=== PATIENT | female | born 1995 | race Caucasian/White ===

== ENCOUNTER → 2022-06-17 | Outpatient (CLI) | payer OTHER, SELFPAY ==
[2022-06-17 10:09] LABS: hCG Titer Quant., Serum 204 mIU/mL (1-3)
== END | disposition home or self-care (01) ==
LOC: PAVLAB 09:02
PROVIDERS: Referring Provider Obstetrics & Gynecology; Visit Provider Obstetrics & Gynecology
DX: N91.2 Amenorrhea, unspecified (principal)
CPT/HCPCS: 36415; 84702

== ENCOUNTER → 2022-07-08 | Outpatient (CLI) | payer OTHER, SELFPAY ==
--- NOTE | 2022-07-08 15:58 | US_ITS ---
EXAM: US , TRANSVAGINAL CLINICAL INDICATION: dating TECHNIQUE: Real-time transvaginal obstetrical ultrasound of the maternal pelvis and a first trimester with image documentation. Transvaginal imaging was used for better evaluation of the fetus and adnexa. This report was created using [employer] report generation technology. COMPARISON: None. FINDINGS: GESTATION: There is an intrauterine gestational sac that measures 3.3 x 1.3 x 3.6 cm age 7 weeks 5 days. There is a 3 mm yolk sac. There is a pole with a crown-rump length of 1 cm age 7 weeks 1 day. heart rate is 150 bpm. PLACENTA/AMNIOTIC FLUID: Cannot be adequately evaluated due to the early gestational age. UTERUS/CERVIX: Uterus measures 9.0 x 4.5 x 6.6 cm. No myometrial mass. OVARIES: The left ovary measures 5.0 x 3.3 x 3.1 cm. There is a 2.0 x 1.9 cm corpus luteum present. The right ovary measures 3.6 x 2.1 x 2.6 cm. No mass. FREE FLUID: No free fluid. US/Transvaginal w/Preg US IMPRESSION: Intrauterine gestation with an average ultrasound age of 7 weeks 3 days and ultrasound estimated due date of 02/21/2023. heart rate is 150 bpm. Electronically Signed: Jose Angel Lopez MD at 21:31 EDT ,
== END | disposition home or self-care (01) ==
LOC: US 15:57
PROVIDERS: Referring Provider Obstetrics & Gynecology; Visit Provider Obstetrics & Gynecology
DX: N91.2 Amenorrhea, unspecified (principal)
CPT/HCPCS: 76817

== ENCOUNTER → 2022-08-05 | Outpatient (CLI) | payer OTHER, SELFPAY ==
[2022-08-05 16:43] LABS: Absolute Lymphocyte Count 2.37 X10^3/uL (0.83-4.51); Absolute Neutrophil Count 4.8 X10^3/uL (2.0-7.7); Basophil# 0.06 X10^3/uL; Basophil% 0.7 % (0-1); Eosinophil# 0.18 X10^3/uL; Eosinophils% 2.2 % (0-5); Hematocrit 37.3 % (37-47); Hemoglobin 12.6 g/dL (12.0-15.0); Lymphocyte # 2.37 X10^3/ul (0.83-4.51); Lymphocyte % 28.7 % (19-41); Mean Corp Hgb Conc 33.8 g/dL (32-36); Mean Corpuscular Hgb 32.5 pg (27.0-32.0); Mean Corpuscular Volume 96.1 fL (81-99); Mean Platelet Vol. 9.9 fl (6.2-12.0); Monocyte# 0.81 X10^3/uL; Monocyte% 9.8 % (0-10); NRBC Flagged by Analyzer 0 % (0-5); Neutrophil # 4.82 X10^3/uL (2.7-7.7); Neutrophil % 58.4 % (47-70); Platelet Count 283 K/mm3 (150-450); RBC Distribution Width CV 13.1 % (11.6-14.6); RBC Distribution Width SD 46.4 fl (35.1-43.9); Red Blood Count 3.88 M/mm3 (4.2-5.4); White Blood Count 8.3 K/mm3 (4.4-11.0)
[2022-08-05 17:12] LABS: NATERA MAILED SPECIMEN
[2022-08-05 18:00] LABS: HIV - WCH Non-Reactive (Nonreactive); Hepatitis B Surface Antigen Non-Reactive (Nonreactive); Hepatitis C Antibody Non-Reactive (Nonreactive); Rubella IgG Reactive (Nonreactive); Syphilis Antibodies Non-reactive
[2022-08-09 22:06] LABS: Chlamydia By Nucleic Acid AMP Negative (Negative)
[2022-08-10 07:50] LABS: Gonococcus By Nucleic Acid AMP Negative (Negative)
== END | disposition home or self-care (01) ==
PROVIDERS: Referring Provider Obstetrics & Gynecology; Visit Provider Obstetrics & Gynecology
DX: Z34.81 Encounter for supervision of other normal pregnancy, first trimester (principal)
CPT/HCPCS: 36415; 85025; 86703; 86762; 86780; 86803; 86850; 86900; 86901; 87086; 87340; 87491; 87591

== ENCOUNTER → 2022-10-15 | Outpatient (CLI) | payer OTHER, SELFPAY ==
--- NOTE | 2022-10-15 12:20 | US_ITS ---
INDICATION: Anatomy scan EXAMINATION: Ultrasound US OB Greater Than 14 Weeks TECHNIQUE: Transabdominal pelvic ultrasound was performed. COMPARISON: None. LMP: Unknown. Beta-hCG: Unknown. Provided EGA: None. FINDINGS: INTRAUTERINE GESTATION(s): Single. HEART MOTION is 136 bpm. BIOMETRIC MEASUREMENTS: HEAD CIRCUMFERENCE: 18.80 cm which corresponds to 21 weeks 1 day. BIPARIETAL DIAMETER: 5.037 cm which corresponds to 21 weeks 2 days. ABDOMINAL CIRCUMFERENCE: 16.47 cm cm which corresponds to 21 weeks 4 days. FEMORAL LENGTH: 3.56 cm cm which corresponds to 21 weeks 2 days. ESTIMATED DUE DATE (MARCO ANTONIO): February 24, 2023 ESTIMATED WEIGHT: 4 22 g PRESENTATION: Cephalic Largest fluid pocket 4.8 x 4.1 cm. BIOPHYSICAL PROFILE (BPP): Not assessed. PLACENTA: Posterior There is no placenta previa or abruption. CERVIX: The cervix is closed. MATERNAL OVARIES: Not seen. FREE FLUID: None. ANATOMY: LATERAL VENTRICLES: Visualized CHOROID PLEXUS: Visualized. MIDLINE FALX: Visualized. CAVUM SEPTUM PELLUCIDI: Visualized. CEREBELLUM: Unremarkable CISTERNA MAGNA: Visualized. 0.6 cm. UPPER LIP: Intact. FOUR CHAMBER HEART VIEW: Unremarkable. LEFT VENTRICULAR OUTFLOW TRACT: Visualized. RIGHT VENTRICULAR OUTFLOW TRACT: Visualized. STOMACH: Visualized. KIDNEYS: Visualized, no hydronephrosis. URINARY BLADDER: Visualized. UMBILICAL CORD INSERTION into the abdomen: Unremarkable. UMBILICAL CORD vessel number: Normal three vessel cord. SPINE: Unremarkable. No posterior spinal defect observed. UPPER AND LOWER EXTREMITIES: Present. GENDER: Not assessed. US/OB Anatomy w/ Transvaginal IMPRESSION: Single live intrauterine with an estimated gestational age of 21 weeks 1 day. Electronically Signed: Catarino North MD, ARTEM at 11:17 EDT ,
== END | disposition home or self-care (01) ==
LOC: OPUS 12:18
PROVIDERS: Referring Provider Obstetrics & Gynecology; Visit Provider Obstetrics & Gynecology
DX: O09.90 Supervision of high risk pregnancy, unspecified, unspecified trimester (principal); Z3A.00 Weeks of gestation of pregnancy not specified
CPT/HCPCS: 76805; 76817

== ENCOUNTER → 2022-12-24 | Outpatient (CLI) | payer OTHER, SELFPAY ==
[2022-12-24 13:32] LABS: Absolute Lymphocyte Count 1.66 X10^3/uL (0.83-4.51); Absolute Neutrophil Count 6.1 X10^3/uL (2.0-7.7); Basophil# 0.04 X10^3/uL; Basophil% 0.5 % (0-1); Eosinophil# 0.15 X10^3/uL; Eosinophils% 1.7 % (0-5); Hematocrit 35.7 % (37-47); Hemoglobin 11.8 g/dL (12.0-15.0); Lymphocyte # 1.66 X10^3/ul (0.83-4.51); Lymphocyte % 18.7 % (19-41); Mean Corp Hgb Conc 33.1 g/dL (32-36); Mean Corpuscular Hgb 32.2 pg (27.0-32.0); Mean Corpuscular Volume 97.5 fL (81-99); Mean Platelet Vol. 11.4 fl (6.2-12.0); Monocyte# 0.84 X10^3/uL; Monocyte% 9.5 % (0-10); NRBC Flagged by Analyzer 0 % (0-5); Neutrophil # 6.14 X10^3/uL (2.7-7.7); Neutrophil % 69.3 % (47-70); Platelet Count 260 K/mm3 (150-450); RBC Distribution Width CV 12.4 % (11.6-14.6); RBC Distribution Width SD 44.6 fl (35.1-43.9); Red Blood Count 3.66 M/mm3 (4.2-5.4); White Blood Count 8.9 K/mm3 (4.4-11.0)
[2022-12-24 14:01] LABS: Glucose Challenge Gest 1H 50g 77 mg/dL (70-140)
[2022-12-28 16:03] LABS: HIV - WCH Non-Reactive (Nonreactive); Syphilis Antibodies Non-reactive
== END | disposition home or self-care (01) ==
PROVIDERS: Referring Provider Advanced Practice Midwife; Visit Provider Advanced Practice Midwife
DX: O09.90 Supervision of high risk pregnancy, unspecified, unspecified trimester (principal); Z13.1 Encounter for screening for diabetes mellitus; Z3A.00 Weeks of gestation of pregnancy not specified
CPT/HCPCS: 36415; 82950; 85025; 86703; 86780

== ENCOUNTER 2023-01-07 14:10 | Outpatient (CLI) | payer OTHER, SELFPAY ==
[2023-01-07] VITALS (8 sets, daily range): BP systolic 121–132; BP diastolic 70–82; PULSE 68–84; TEMP 36.7; BMI 29.9
--- NOTE | 2023-01-07 14:22 | US_ITS ---
STUDY: SECOND AND THIRD TRIMESTER OBSTETRICAL ULTRASOUND - LIMITED REASON FOR EXAM: Female, 27 years old growth LMP: PRIOR ULTRASOUND: None. TECHNIQUE: Transabdominal TECHNICAL QUALITY: Adequate. FINDINGS: There is a single intrauterine fetus. The fetus is in a cephalic presentation. There is demonstrated cardiac activity with a heart rate of 140 bpm. There is a normal amniotic fluid volume. The largest amniotic fluid pocket measures 4.6 x 3.3 cm. The amniotic fluid index (NAHEED) is 13.27 cm. The placenta is posterior and not low-lying There are Grade 1 placental changes. Cervix was not visualized.. BIOMETRY: BPD: 8.5 cm: 34 weeks, 2 days HC: 31.02 cm: 34 weeks, 5 days AC: 27.52 cm: 31 weeks, 4 days FL: 6.49 cm: 33 weeks, 3 days Age by LMP: 33 weeks, 4 days. MARCO ANTONIO by LMP: February 21, 2023. age by prior US: weeks, days. MARCO ANTONIO by prior US: . age by current US: 33 weeks, 5 days. MARCO ANTONIO by current US: February 20, 2023. Estimated weight: 2028 grams, +/- 304 grams, 20 percentile. US/OB Limited With Biometrics IMPRESSION: Viable intrauterine gestation approximately 33-34 weeks gestational age. No significant abnormality Electronically Signed: Prasad Flores MD at 16:33 EDT ,
[2023-01-07] MEDS: Betamethasone/Betamethasone 30 MG/5 ML Vial 12 MG IM (14:59)
[2023-01-07 15:07] LABS: Hematocrit 34.6 % (37-47); Hemoglobin 11.6 g/dL (12.0-15.0); Mean Corp Hgb Conc 33.5 g/dL (32-36); Mean Corpuscular Hgb 32.2 pg (27.0-32.0); Mean Corpuscular Volume 96.1 fL (81-99); Platelet Count 238 K/mm3 (150-450); RBC Distribution Width CV 12.1 % (11.6-14.6); White Blood Count 11.2 K/mm3 (4.4-11.0)
[2023-01-07 15:28] LABS: AST(SGOT) 10 U/L (15-37); Alanine Aminotransfer ALT/SGPT 14 U/L (13-56); Creatinine, Serum 0.72 mg/dL (0.55-1.02); EST Glomerular Filtration Rate 104 mL/min (>60); Est Glom Filt Rate - Afr Amer 126 mL/min (>60); Estimated Creatinine Clearance 102.25 ml/min; Uric Acid 3.5 mg/dL (2.6-6.0)
[2023-01-07 15:45] LABS: Protein, Urine (Random) < 6.0 mg/dL (<11.9)
--- NOTE | 2023-01-08 00:54 | OB.TRI.PN_ITS ---
Progress Notes Date of Service: 01/07/23 Progress Note: Patient presents for triage evaluation secondary to elevate dblood pressures FHT: 140 Moderate variability reactive no decelerations category I tracing [place]: no regular Contractions Assessment and plan: elevate dbp in office repeats WNL nl labs steroids given Reactive NST, reassuring maternal and status patient discharged to home to follow-up for repeat bmx tomorrow. See problem list details for additional plan information. Laboratory Studies: Laboratory Tests 01/07/23 Range/Units 14:45 WBC 11.2 H (4.4-11.0) K/mm3 RBC 3.60 L (4.2-5.4) M/mm3 Hgb 11.6 L (12.0-15.0) g/dL Hct 34.6 L (37-47) % MCV 96.1 (81-99) fL MCH 32.2 H (27.0-32.0) pg MCHC 33.5 (32-36) g/dL RDW Std Deviation 43.0 (35.1-43.9) fl RDW Coeff of Livia 12.1 (11.6-14.6) % Plt Count 238 (150-450) K/mm3 MPV 12.0 (6.2-12.0) fl Creatinine 0.72 (0.55-1.02) mg/dL Estim Creat Clear Calc 102.25 ml/min Est GFR (MDRD) Af Amer 126 (>60) mL/min Est GFR (MDRD) Non-Af 104 (>60) mL/min Uric Acid 3.5 (2.6-6.0) mg/dL AST 10 L (15-37) U/L ALT 14 (13-56) U/L U Random Total Protein < 6.0 (<11.9) mg/dL Urine Creatinine 14.80 (NO RANGE EST.) mg/dL Protein/Creatinin Ratio TNP Charges/Coding Procedures Urinary/Genital [id number]: [id number] non-stress test Interp Assessment & Plan (1) Elevated blood pressure reading in office with diagnosis of hypertension: COMMENT: repeat bps WNL, given steroids on l and d 01/07 and 01/08 (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 (3) Supervision of high risk , antepartum: COMMENT: PRR MARCO ANTONIO 02/21/23 boy Turner (4) : QUALIFIERS: Weeks of gestation: 33 weeks Qualified Code(s): Z3A.33 - 33 weeks gestation of COMMENT: NIPT low risk, had early ultrasound, nl anatomy
== END 2023-01-07 17:35 | disposition home or self-care (01) ==
LOC: WPOUT 14:14 → WP 14:15
PROVIDERS: Referring Provider Obstetrics & Gynecology; Visit Provider Obstetrics & Gynecology
DX: O16.3 Unspecified maternal hypertension, third trimester (principal); Z3A.33 33 weeks gestation of pregnancy
CPT/HCPCS: 36415; 59025; 59050; 76816; 82565; 82570; 84156; 84450; 84460; 84550; 85027; 96372; 99221; G0378; J0702

== ENCOUNTER → 2023-01-07 | Outpatient (CLI) | payer OTHER, SELFPAY ==
[2023-01-07 15:19] LABS: Protein, Urine (Random) < 6.0 mg/dL (<11.9)
== END | disposition home or self-care (01) ==
LOC: LABSPEC 14:15
PROVIDERS: Referring Provider Registered Nurse; Visit Provider Registered Nurse
DX: O16.9 Unspecified maternal hypertension, unspecified trimester (principal); Z3A.00 Weeks of gestation of pregnancy not specified
CPT/HCPCS: 82570; 84156

== ENCOUNTER 2023-01-08 14:55 | Outpatient (CLI) | payer OTHER, SELFPAY ==
[2023-01-08] MEDS: Betamethasone/Betamethasone 30 MG/5 ML Vial 12 MG IM (15:30)
--- NOTE | 2023-01-09 10:19 | OB.TRI.PN ---
Progress Notes Date of Service: 01/08/23 Progress Note: [facility] prematurity
== END 2023-01-08 15:35 | disposition home or self-care (01) ==
LOC: WPOUT 15:05 → WP 15:06
PROVIDERS: Referring Provider Obstetrics & Gynecology; Visit Provider Obstetrics & Gynecology
DX: O26.893 Other specified pregnancy related conditions, third trimester (principal); R03.0 Elevated blood-pressure reading, without diagnosis of hypertension; Z3A.33 33 weeks gestation of pregnancy
CPT/HCPCS: 96372; 99221; G0378; J0702

== ENCOUNTER 2023-01-12 23:00 | Inpatient (IN) | payer OTHER, SELFPAY ==
[2023-01-12] VITALS (24 sets, daily range): BP systolic 136–184; BP diastolic 66–97; PULSE 53–96; RESP 16; TEMP 36.6–37.1; O2SAT 97–100; BMI 30.2
--- OUTSIDE RECORDS SUMMARY | 2023-01-12 20:35 | XMS RPT_ITS | CCD ---
Author Name Unknown Address [address] [place] [address] Organization [facility] Care Team Providers Care Electrical Cad Technician Name Role Phone Sprang, Vicki Unavailable No, Physician Unavailable Unavailable NATALIE, STARR Unavailable Unavailable NATALIE, STARR Unavailable Unavailable NATALIE, STARR Unavailable Unavailable NATALIE, STARR Unavailable Unavailable Gael, Radha A Unavailable Unavailable Gael, Radha A Unavailable Unavailable No Doctor Assigned, Nodr Unavailable Unavail able No Doctor Assigned, Nodr Unavailable Unavail able Sokari, Telemate Unavailable Unavailable Sokari, Telemate Unavailable Unavailable No Doctor Assigned, Nodr Unavailable Unavail able Conrad, Aime W Unavailable Unavailable Conrad, Aime W Unavailable Unavailable No Doctor Assigned, Nodr Unavailable Unavail able Rings, Parth Unavailable Unavailable Rings, Parth Unavailable Unavailable NATALIE, STARR Unavailable Unavailable GARDILCIC, STJEPAN Unavailable Unavailable NATALIE, STARR Unavailable Unavailable GARDILCIC, STJEPAN Unavailable Unavailable Acosta, Jose Raul Unavailable Unavailable PROVIDER, UNKNOWN Unavailable Unavailable No, PCP Unavailable Unavailable DON YARA R Unavailable Unavailable SPRANG, VICKI A Unavailable Unavailable SPRANG, VICKI A Unavailable Unavailable DON YARA R Unavailable Unavailable DON, YARA R Unavailable Unavailable SPRANG, VICKI A Unavailable Unavailable DON, YARA R Unavailable Unavailable SPRANG, VICKI A Unavailable Unavailable SPRANG, VICKI A Unavailable Unavailable KATHI JIMENEZ ANANT Unavailable Unavailable ANKUSHDONI PELAYO ANANT Unavailable Unavail able SPRANG, VICKI Unavailable Unavailable SPRANG, VICKI Unavailable Unavailable ENT CONSULTANT, DONNAMARIE Unavailable Unavailable SPRANG, VICKI Unavailable Unavailable SPRANG, VICKI Unavailable Unavailable ENT CONSULTANT, DONNAMARIE Unavailable Unavailable SPRANG, VICKI Unavailable Unavailable Operations Project Manager, Donnamarie Unavailable Unavailable Operations Project Manager, Donnamarie Unavailable Unavailable Operations Project Manager, Donnamarie Unavailable Unavailable Operations Project Manager, Donnamarie Unavailable Unavailable Sprang, Vicki A Unavailable Unavailable Sprang, Vicki A Unavailable Unavailable NO, PHYSICIAN Primary Care Unavailable No, Physician Primary Care Provider Unavailabl e NO, PHYSICIAN Primary Care Unavailable SUNG SALES Attending Unavailable SUNG SALES Admitting Unavailable Required, No Pcp Unavailable Unavailable Edilberto Tellez Unavailable Unavailable Catarino Cervantes Unavailable Unavailable Jose Maria, Dr. Prashanth Centeno Attending Unavaila ble Billy, Dr. Catarino Mendoza Attending Unavaila ble Belen, Mr. Ian Schulz Attending Unavailable Aime King Unavailable Allergies Allergy Classification Reported Allergen(s) Allergy Type Date of Onset Reaction(s) Facility (1 source) No Known Medication Allergies; Translations: [No Known Medication Allergies] Propensity to adverse reactions to drug (disorder) [facility] Repository Medications Current Medications Medication Drug Class(es) Dates Sig (Normalized) Sig (Original) amitriptyline hydrochloride 25 mg oral tablet (1 source) Tricyclic Antidepressant Start: 07-06-2017 End: 07-06-2018 take 1 tablet by mouth once amitriptyline (ELAVIL) 25 MG tablet Take 1 (one) tablet (25 mg total) by mouth nightly. 30 tablet 0 07/06/2017 07/06/2018 Active cephalexin 500 mg oral capsule (1 source) Cephalosporin Antibacterial Start: 12-31-2022 End: 01-06-2023 take 1 capsule by mouth twice daily cephalexin 500 mg oral capsule ; 1 cap(s) orally 2 times a day Quantity: 14 Refills: 0 Ordered: 30-Dec-2022 Aime King Start: 30-Dec-2022 End: 05-Jan-2023 Generic Substitution Allowed Comments: Finish all this medication unless otherwise directed by prescriber. Completed/Discontinued Medications Medication Drug Class(es) Dates Sig (Normalized) Sig (Original) amoxicillin 500 mg oral capsule (3 sources) Penicillin-class Antibacterial Start: 06-16-2022 End: 07-16-2022 AMOXICILLIN 500 MG CAPSULE ; 1 cap(s) orally once a day with food Quantity: 0 Refills: 1 Ordered: 05-Jul-2022 Kimberlee Sanchez Start: 16-Jun-2022 End: 16-Jul-2022 Generic Substitution Allowed Comments: Source=Surescripts , Medication=AMOXICI LLIN 500 MG CAPSULE, OriginatingSource= [employer], OriginatingProvide r=CHANTAL RAMIREZ, Duration=30, Refills=1, Date Last Modified/Filled= Problems Active Problems Problem Classification Problem Date Documented Da te Episodic/Chronic Abdominal pain (1 source) Pelvic and perineal pain; Translations: [Pelvic and perineal pain] Onset: 08-03-2017 Fever of unknown origin (1 source) Fever, unspecified; Translations: [Fever, unspecified] Onset: 07-05-2022 Episodic Fluid and electrolyte disorders (1 source) Dehydration; Translations: [Dehydration] Onset: 07-05-2022 Episodic Genitourinary symptoms and ill-defined conditions (2 sources) Retention of urine; Translations: [Dysuria] Onset: 06-27-2017 Episodic Hypertension complicating ; childbirth and the puerperium (1 source) Hypertensive disorder; Translations: [Unspecified hypertension complicating , childbirth, or the puerperium, unspecified as to episode of care or not applicable] 12-31-2022 Chronic Intestinal infection (1 source) Viral intestinal infection, unspecified; Translations: [Viral intestinal infection, unspecified] Onset: 07-05-2022 Episodic Mood disorders (1 source) Mild major depression, single episode; Translations: [Current mild episode of major depressive disorder without prior episode] Onset: 12-01-2018 12-01-2018 Chronic Other complications of (1 source) Other viral diseases complicating , first trimester; Translations: [Other viral diseases complicating , first trimester] Onset: 07-05-2022 Episodic Other complications of (1 source) Endocrine, nutritional and metabolic diseases complicating , first trimester; Translations: [Endo, nutritional and metab diseases comp preg, first tri] Onset: 07-05-2022 Episodic Other complications of (1 source) Vomiting of , unspecified; Translations: [Vomiting of , unspecified] Onset: 07-05-2022 Episodic Other complications of (1 source) Other specified related conditions, first trimester; Translations: [Oth related conditions, first trimester] Onset: 07-05-2022 Episodic Other diseases of bladder and urethra (1 source) Other specified disorders of bladder; Translations: [Other specified disorders of bladder] Onset: 06-06-2022 Chronic Other diseases of bladder and urethra (1 source) Spasm of bladder; Translations: [Spasmodic bladder] Episodic Other skin disorders (2 sources) Localized swelling, mass and lump, right upper limb; Translations: [Localized swelling, mass and lump, right upper limb] Onset: 04-11-2018 Episodic Residual codes; unclassified (1 source) Less than 8 weeks gestation of ; Translations: [Less than 8 weeks gestation of ] Onset: 07-05-2022 Episodic Unclassified (1 source) Unknown / UNK(Unknown) Onset: 06-27-2017 Unclassified (2 sources) EAR PAIN 04-16-2021 Past or Other Problems Problem Classification Problem Date Documented Da te Episodic/Chronic Abdominal pain (4 sources) Unspecified abdominal pain; Translations: [Suprapubic pain] Onset: 06-15-2017 Episodic Other female genital disorders (4 sources) Pain in female pelvis; Translations: [Female pelvic pain] Onset: 06-27-2017 06-27-2017 Episodic Other lower respiratory disease (1 source) Hyperventilation; Translations: [Hyperventilation] Onset: 12-05-2021 Episodic Other skin disorders (3 sources) Mass of axilla; Translations: [Mass of right axilla] Onset: 04-11-2018 04-11-2018 Episodic Results Test Name Value Interpretation Reference Range Facil ity Vital Signs Date Time Vital Sign Value Performing Clinician Facility 12-31-2022 01:03-0400 Diastolic blood pressure 80 mm[Hg] No Pcp Required [facility] 12-31-2022 01:03-0400 Heart rate 74 /min No Pcp Required [facility] 12-31-2022 01:03-0400 Respiratory rate 16 /min No Pcp Required [facility] 12-31-2022 01:03-0400 SaO2% (BldA) [Mass fraction] 98 % No Pcp Required [facility] 12-31-2022 01:03-0400 Systolic blood pressure 131 mm[Hg] No Pcp Required [facility] 12-30-2022 22:55-0400 Body height 162.5 cm No Pcp Required [facility] 12-30-2022 22:55-0400 Body temperature 98.06 [degF] No Pcp Required [facility] 12-30-2022 22:55-0400 Body weight 78 kg No Pcp Required [facility] 12-05-2021 01:07-0400 Heart rate 90 /min No Pcp Required [facility] 12-05-2021 01:07-0400 Respiratory rate 18 /min No Pcp Required [facility] 12-05-2021 01:07-0400 SaO2% (BldA) [Mass fraction] 100 % No Pcp Required [facility] 12-04-2021 22:37-0400 Body height 162.5 cm No Pcp Required [facility] 12-04-2021 22:37-0400 Body temperature 98.78 [degF] No Pcp Required [facility] 12-04-2021 22:37-0400 Body weight 66 kg No Pcp Required [facility] 12-04-2021 22:37-0400 Diastolic blood pressure 85 mm[Hg] No Pcp Required [facility] 12-04-2021 22:37-0400 Systolic blood pressure 112 mm[Hg] No Pcp Required [facility] 04-16-2021 16:52-0500 Body height 162.5 cm No Pcp Required [facility] 04-16-2021 16:52-0500 Body temperature 97.7 [degF] No Pcp Required [facility] 04-16-2021 16:52-0500 Diastolic blood pressure 78 mm[Hg] No Pcp Required [facility] 04-16-2021 16:52-0500 Heart rate 71 /min No Pcp Required [facility] 04-16-2021 16:52-0500 SaO2% (BldA) [Mass fraction] 98 % No Pcp Required [facility] 04-16-2021 16:52-0500 Systolic blood pressure 120 mm[Hg] No Pcp Required [facility] 12-13-2018 11:57-0400 BP Diastolic 105 mm[Hg] Adalberto Ho [facility] 12-13-2018 11:57-0400 BP Systolic 168 mm[Hg] Adalberto Ho [facility] 12-13-2018 11:57-0400 Pulse (Heart Rate) 91 /min Adalberto Ho [facility] 12-13-2018 10:45-0400 Pulse Oximetry 99 % Adalberto Ho [facility] 12-13-2018 08:49-0400 Body Temperature 97.39 [degF] Adalberto Ho [facility] 12-13-2018 08:49-0400 Respiratory Rate 22 /min Adalberto Ho [facility] 04-11-2018 08:46-0500 BMI (Body Mass Index) 28.34 kg/m2 [facility] 04-11-2018 08:46-0500 Body Temperature 98.71 [degF] [facility] 04-11-2018 08:46-0500 BP Diastolic 78 mm[Hg] [facility] 04-11-2018 08:46-0500 BP Systolic 124 mm[Hg] [facility] 04-11-2018 08:46-0500 Height 160 cm [facility] 04-11-2018 08:46-0500 Pulse (Heart Rate) 79 /min [facility] 04-11-2018 08:46-0500 Respiratory Rate 14 /min [facility] 04-11-2018 08:46-0500 Weight 72.58 kg [facility] 06-27-2017 11:12-0500 BMI (Body Mass Index) 23.87 kg/m2 [facility] 06-27-2017 11:12-0500 Body Temperature 98.49 [degF] [facility] 06-27-2017 11:12-0500 BP Diastolic 82 mm[Hg] [facility] 06-27-2017 11:12-0500 BP Systolic 129 mm[Hg] [facility] 06-27-2017 11:12-0500 Height 163.7 cm [facility] 06-27-2017 11:12-0500 Pulse (Heart Rate) 70 /min [facility] 06-27-2017 11:12-0500 Respiratory Rate 15 /min [facility] 06-27-2017 11:12-0500 Weight 63.96 kg [facility] Encounters Encounter Date Encounter Type Care Provider Facility Start: 12-30-2022 End: 12-31-2022 Emergency department patient visit Aime King [facility] Emergency 14 Start: 07-05-2022 End: 07-05-2022 Emergency department patient visit Dr. Prashanth Moise Facility:[id number] Start: 06-06-2022 End: 06-06-2022 Emergency department patient visit Mr. Ian Glover Facility:[id number] Start: 12-04-2021 End: 12-05-2021 Emergency department patient visit Catarino Cervantes [facility] Emergency Start: 04-16-2021 End: 04-16-2021 Emergency department patient visit Edilberto Tellez [facility] 02 Start: 12-13-2018 End: 12-13-2018 Emergency department patient visit PHYSICIAN ELLIE [facility] Start: 12-13-2018 End: 12-13-2018 Emergency department patient visit Adalberto Ho Work Phone: [facility] Emergency Department Procedures Date Procedure Procedure Detail Performing Clinician Start: 12-13-2018 Basic metabolic 2000 panel - Serum or Plasma Kay Simpson Work Phone: Start: 12-13-2018 Choriogonadotropin ( test) [Presence] in Urine Kay Simpson Work Phone: Start: 12-13-2018 Complete blood count with white cell differential, automated Kay Simpson Work Phone: Start: 12-13-2018 Complete blood count with white cell differential, manual Kay Simpson Work Phone: Start: 12-13-2018 INR in Platelet poor plasma by Coagulation assay Kay Simpson Work Phone: Start: 12-13-2018 Urinalysis Kay Simpson Work Phone: Start: 11-18-2017 Microscopic observation [Identifier] in Cervix by Cyto stain Gabriela Jacobs Plan of Treatment Date Care Activity Detail Author Start: 10-24-2022 Tetanus vaccination TETANUS EVERY 10 YR [facility] Start: 11-18-2020 Screening for malignant neoplasm of cervix PAP SMEAR [facility] Start: 12-02-2019 History and physical examination, annual for health maintenance Wellness Visit [facility] Start: 12-02-2019 Screening for Chlamydia trachomatis Chlamydia Screening [facility] Start: 12-24-2018 Influenza vaccination given SEQUENTIAL INFLUENZA VACCINE (#1) [facility] Start: 04-19-2018 End: 04-19-2018 Ambulatory 04/19/2018 Scanned Document General Surgery Gabriela Jacobs MD [address] [place], [place] [id number] [phone] [facility] Start: 12-24-2017 Influenza vaccination SEQUENTIAL INFLUENZA VACCINE (#1) [facility] Start: 07-13-2017 Ambulatory 07/13/2017 Office Visit Urogynecology Kathi Jimenez MD [address] [place] [address] [phone] [facility] Start: 06-27-2017 Ambulatory 06/27/2017 Office Visit Urogynecology Kathi Jimenez MD [address] [place] [address] [phone] [facility] Start: 12-24-2016 Influenza vaccination SEQUENTIAL INFLUENZA VACCINE (#1) [facility] Work Phone: Start: 03-08-2014 Vaccination for human papillomavirus HPV VACCINES (2 - Female 3-dose series) [facility] Start: 2007 Vaccination for human papillomavirus [facility] Work Phone: Start: 1996 Screening for malignant neoplasm of cervix PAP SMEAR [facility] Start: 1996 Tetanus vaccination TETANUS EVERY 10 YR [facility] Work Phone: End: 12-13-2018 Bacteria identified Aer cx Nom (Unsp spec) Urine Aerobic Culture Microbiology Routine Once for 1 Occurrences starting 12/13/2018 until 12/13/2018 [facility] Immunizations Immunization Date Immunization Notes Care Provider Farrukh comer 02-08-2014 HPV, unspecified formulation Adalberto Ho [facility] Payers Date Payer Category Payer Unknown 2017 Medicaid xxxxxxxxxxx 2.1 [id number] 2017 Unknown [id number] 2016 Medicaid 1996 Unknown [id number] 2.16.8 [id number] 1996 Unknown [id number] 2.16.8 [id number] 1996 Unknown [id number] 2.16.8 [id number] 1996 Unknown [id number] 2.16.8 [id number] 1996 Unknown [id number] 2.16.8 [id number] 1996 Unknown [id number] 2.16.8 [id number] 1996 Unknown [id number] 2.16.8 [id number] 1996 Unknown [id number] 2.16.8 [id number] Medicaid [id number] 2. [id number] Medicaid [id number] 2. 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) [facility] Goals Date Patient Goal Desired Activity /State Assessments Diagnosis Female pelvic pain - Primary Unspecified symptom associated with female genital organs Diagnosis Mass of right axilla- Primary Diagnosis Spasmodic bladder- Primary Other specified disorder of bladder Suprapubic pain Abdominal pain, other specified site Summary Purpose Family History No Family History Records FoundNo Family History Records FoundNo Family History Records FoundNo Family History Records FoundNo Family History Records FoundNo Family History Records FoundNo Family History Records FoundNo Family History Records FoundNo Family History Records FoundNo Family History Records Found Advance Directives Documents on File Type Date Recorded Patient Broadcast News Producer Expl ramon Advance Directives and Isa garcias Will 12/13/2018 9:34 AM Reason for Referral Status Reason Specialty Diagnoses / Procedures Referred By Contact Referred To Contact Closed General Surgery Diagnoses Mass of right axilla Vicki Lentz CNP [address] [place] [address] [place] [id number] History of Present Illness * Gabriela Jacobs MD - 04/11/2018 9:05 AM EST Formatting of this note may be different from the original. [facility] PATIENT: Ronaldo Erazo DATE / TIME: 04/11/18 9:05 AM POS: Office AGE: 23 y.o. : 1995 RACE: [1] SEX: female PCP: Vicki Lentz CNP REFERRAL: Vicki Lentz CNP HISTORY OF PRESENT ILLNESS CC / Reason for Consult: Right axillary mass HPI: 23-year-old female with history of depression referred to my office for a palpable right axillary mass. Patient states that she thinks it has been there for approximately 2-3 years but appreciates growth over the last year. During aggressive working out she notes some tenderness and pain in the right upper extremity that she associates with this mass. In addition when raising her arms it is now visible and she is self-conscious about its appearance. Denies any fevers or chills no night sweats no weight loss recently. Was seen by her primary care physician in June underwent a right axillary ultrasound which identified a well circumscribed mass in the subcutaneous tissues that was isoech oic and likely either a lipoma or accessory gland tissue PAST MEDICAL / SURGICAL HISTORY Past Medical History: Diagnosis Date Acne Bladder infection Depression Past Surgical History: Procedure Laterality Date CYSTO CYSTO 04/06/2017 Urethral pain..... [facility] NERVE BLOCK 06/2017 back TONSILLECTOMY 2010 WISDOM TOOTH EXTRACTION FAMILY HISTORY Family History Problem Relation Age of Onset Cancer Paternal Grandfather Diabetes Paternal Grandfather Stroke Paternal Grandfather Colorectal cancer Paternal Grandfather SOCIAL HISTORY Data Unavailable History Smoking Status Never Smoker Smokeless Tobacco Never Used History Alcohol Use No History Drug Use No MEDICATIONS: Patient has a current medication list which includes the following prescription(s): drospirenone-ethinyl estradiol, nitrofurantoin, sertraline, and spironolactone. ALLERGIES: No Known Allergies REVIEW OF SYSTEMS Pertinent positives and negatives are listed in HPI, PMSH, SH, ALL above and in Details below. The following systems were reviewed: [x] Const (fevers, chills, wt. loss, fatigue) [x] CV (HTN, CP, MONROY, edema, DVT) [x] Resp (SOB, pleurisy, asthma, apnea) [x] GI (N, V, D, C, M, abd pain, appetite) [x] Musc (back pain, joint stiffness, gout) [x] Neuro (seizures, syncope, paralysis) [x] Psych (depression, anxiety) [x] Endo (hot/cold intol, polyuria[DM]) [x] Hem/Lymph (Anemia, LA, bleeding) [x] Allerg/Immun (seasonal, immuniz) [x] Eyes (diplopia, cataracts) [x] ENT/mouth (dysphagia, epistaxis) [x] (dysuria, hematuria) [x] Skin/Breast (moles, rash, lumps, nipple changes) Details: PHYSICAL EXAM BP 124/78 Pulse 79 Temp 98.7 F (37.1 C) Resp 14 Ht 5' 3 Wt 72.6 kg (160 lb) BMI 28.34 kg/m Details: Physical Exam Constitutional: She appears well-developed and well-nourished. HENT: Head: Normocephalic. Eyes: Pupils are equal, round, and reactive to light. Neck: Normal range of motion. Cardiovascular: Normal rate. Pulmonary/Chest: Effort normal. Abdominal: Soft. Musculoskeletal: Normal range of motion. Skin: Skin is warm. Psychiatric: She has a normal mood and affect. Her behavior is normal. LABS / X-RAYS Details: Laboratory Lab Results Component Value Date WBC 6.3 04/06/2017 HGB 11.2 (L) 04/06/2017 HCT 33.5 (L) 04/06/2017 PLT 229 04/06/2017 No results found for: AMYLASE No results found for: LIPASE Right axillary ultrasound 06/24/2017 Accession No: [id number] Performed: Jun 24 2017 3:27PM Examination: RIGHT US EXTREMITY NON-VASCULAR LMITED EXAMINATION: US EXTREMITY NON-VASCULAR LIMITED RIGHT [id number] CLINICAL HISTORY: 22-year-old female with increasing palpable lump in the right axilla. Originally noticed at least two years ago, but now increasing in size and causing right upper extremity tingling. The lump is not painful. COMPARISON: None available. TECHNIQUE: Pantoja-scale images were performed by the diving supervisor of the palpable abnormality in the right axilla. FINDINGS: In the area of interest there is a well-circumscribed lobulated isoechoic heterogeneous lesion just beneath the skin surface. This measures at least 2.9 cm in greatest CC dimension and 1 x 2.5 cm in other dimensions. Orientation is parallel. There are no definite microcalcifications or major perfusion. IMPRESSION: Palpable abnormality in the right axilla corresponds to a solid Heterogeneous predominantly isoechoic structure. Differential considerations would include a lipogenic lesion such as lipoma and less likely accessory glandular tissue. The lesion is not a cyst nor a lymph node. Any decision for further Surveillance and/or intervention should be made on clinical grounds and patient Demographic. However, given the provided history of paresthesias and increasing size, The patient may need a surgical referral for definitive excision. Interpreting Physician: CRISTOFER POND M.D. ASSESSMENT AND PLAN: Patient Active Problem List Diagnosis SNOMED CT(R) Female pelvic pain PAIN IN FEMALE PELVIS Mass of right axilla MASS OF AXILLA Due to the change in size and symptom medic nature would recommend surgical excision of this right axillary mass. Risks and possible complications including but not limited to bleeding, infection, injury to surrounding structures and need for further operation pending final pathology were discussedwith the patient. Patient understanding and willing to proceed. We will schedule and consent today. Anticip Anesthesia: MAC Follow-up: ICD: Mass of right axilla [R22.31] [] Thank you for the privilege of allowing me to participate in the care of Ronaldo Erazo. in this encounter Procedure Findings Note [facility] [address], [place] [address]ZPBZ RONALDO ERAZO [facility] [id number] REPORT / PROCEDURE NOTESURGEON GABRIELA [place], MDPREOPERATIVE DIAGNOSISRight axillary mass.POSTOPERATIVE DIAGNOSISRight axillary mass.PROCEDUREExcisional biopsy of right axillary mass.INDICATIONSPatient is a 23-year-old female who has been seen and followed by her OB/GYNfor a right axillary mass. Patient had undergone an ultrasound of the rightaxilla that identified a hypoechoic mass consistent with either lipoma oraccessory breast tissue. The patient was referred to my office because ofthis persistent right axillary mass because it was felt to be growing in sizeand becoming more symptomatic. Risks and possible complications of excisionwere discussed with the patient including, but not limited to bleeding,infection, need for further operation pending final pathology and risk ofinjury to surrounding structures. Patient agreed to proceed.DESCRIPTI (more content not included)... Additional Source Comments Transfer Center Note - Margaret Jordan RN - 07/06/2017 11:28 PM EDT Miscellaneous Notes (unrecog nized section and content) Conference call initiated b/t Venita Castillo CNP & Dr. Edmundo Carbajal, urology for consultation expertise only; Venita KAY is not transferring the patient to [place] at this time. Dr. Carbajal suggested pyridium or urabel be given for spasms or pain, no narcotics and treat with appropriate atb, f/u with [facility] urogynecologist for further symptoms. Venita stated imaging was negative, lab positive for UTI.in this encounter INFORMATION SOURCE (unrecogn ized section and content) DATE CREATED AUTHOR AUTHOR'S ORGANIZ ATION 10/12/2017 [facility] DATE CREATED AUTHOR AUTHOR'S ORGANIZ ATION 10/13/2017 [facility] DATE CREATED AUTHOR AUTHOR'S ORGANIZ ATION 10/14/2017 [facility] DATE CREATED AUTHOR AUTHOR'S ORGANIZ ATION 10/17/2017 [facility] DATE CREATED AUTHOR AUTHOR'S ORGANIZ ATION 04/21/2018 [facility] DATE CREATED AUTHOR AUTHOR'S ORGANIZ ATION 04/24/2018 [facility] DATE CREATED AUTHOR AUTHOR'S ORGANIZ ATION 12/05/2018 [facility] DATE CREATED AUTHOR AUTHOR'S ORGANIZ ATION 12/18/2018 [facility] DATE CREATED AUTHOR AUTHOR'S ORGANIZ ATION 07/09/2022 [facility] Reason for Visit (unrecogniz ed section and content) Status Reason Specialty Diagnoses / Procedures Referred By Contact Referred To Contact Closed General Surgery Diagnoses Mass of right axilla Vicki Lentz, CAFE LEAD [address] Hernandez [address] [place] [id number] Reason Comments Urinary Retention PT WITH HX OF BLADDE R SPASMS; THIS EPISODE STARTED LAST PM ACUTELY WORSE 5AM THIS MORNING Dianna Dodge RN - 12/13/2018 11:35 AM EDTSKay quispe CNP - 12/13/2018 8:53 AM EDT ED Notes (unrecognized secti on and content) Advanced Practice Provider (DAVID) at bedside. [facility] ED DAVID Note: NAME: Ronaldo Erazo 23 y.o. CSN: [id number] PCP: Physician No History: Chief Complaint: Urinary Retention (PT WITH HX OF BLADDER SPASMS; THIS EPISODE STARTED LAST PM ACUTELY WORSE 5AM THIS MORNING ) HPI: The history was obtained from the patient and mother. Ronaldo is a 23 y.o. female who presents with a chief complaint of Urinary Retention (PT WITH HX OF BLADDER SPASMS; THIS EPISODE STARTED LAST PM ACUTELY WORSE 5AM THIS MORNING ). 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 She states she is under a tremendous amount of stress. Patient is trembling and crying due to reports of which she believes to be bladder spasms. Patient reports she has a history of bladder spasms and this feels exactly the same . Patient has been evaluated several times by urologist for this complaint. She currently sees an EMERGENCY MEDICINE SPECIALIST that had started her on daily Macrobid and she reports she has been spasm free for 10 months. Patient will be seeing her PLANNED GIVING OFFICER this afternoon for this complaint. PMHx: Past Medical History: Diagnosis Date Acne Bladder infection Depression PMSx: Past Surgical History: Procedure Laterality Date CYSTO CYSTO 04/06/2017 Urethral pain..... [facility] EXCISION Right 04/19/2018 axillary mass-lipoma....Dr. Jacobs NERVE BLOCK 06/2017 back TONSILLECTOMY 2010 WISDOM TOOTH EXTRACTION FAM. Hx: Family History Problem Relation Age of Onset Cancer Paternal Grandfather Diabetes Paternal Grandfather Stroke Paternal Grandfather Colorectal cancer Paternal Grandfather SOC. Hx: Social History Socioeconomic History Marital status: Single Spouse name: Not on file Number of children: Not on file Years of education: Not on file Highest education level: Not on file Occupational History Not on file Social Needs Financial resource strain: Not on file Food insecurity: Worry: Not on file Inability: Not on file Transportation needs: Medical: Not on file Non-medical: Not on file Tobacco Use Smoking status: Never Smoker Smokeless tobacco: Never Used Substance and Sexual Activity Alcohol use: No Drug use: No Sexual activity: Yes Partners: Male control/protection: Pill Lifestyle Physical activity: Days per week: Not on file Minutes per session: Not on file Stress: Not on file Relationships Social connections: Talks on phone: Not on file Gets together: Not on file Attends sabianism service: Not on file Active member of club or organization: Not on file Attends meetings of clubs or organizations: Not on file Relationship status: Not on file Other Topics Concern Not on file Social History Narrative Not on file MEDs: Previous Medications Medication Sig nitrofurantoin (MACRODANTIN) 100 MG capsule Take 1 (one) capsule (100 mg total) by mouth once daily . sertraline (ZOLOFT) 50 MG tablet Take 1 (one) tablet (50 mg total) by mouth daily . spironolactone (ALDACTONE) 100 MG tablet Take by mouth. drospirenone-ethinyl estradiol (ARNULFO) 3-0.02 mg per tablet Take 1 (one) tablet by mouth daily . ALL: No Known Allergies ROS: Review of Systems Positives and pertinent negatives as per HPI. All other systems were reviewed and are negative. Physical Exam: Patient Vitals for the past 24 hrs: BP Temp Temp src Pulse Resp SpO2 12/13/18 1045 99 % 12/13/18 0930 98 % 12/13/18 0849 (!) 148/118 97.4 F (36.3 C) Oral (!) 139 (!) 22 95 % Physical Exam Vitals signs and nursing note reviewed. Constitutional: General: She is in acute distress. Appearance: She is well-developed and normal weight. HENT: Head: Normocephalic and atraumatic. Nose: Nose normal. Eyes: General: No scleral icterus. Conjunctiva/sclera: Conjunctivae normal. Neck: Musculoskeletal: Full passive range of motion without pain. Cardiovascular: Rate and Rhythm: Regular rhythm. Tachycardia present. Heart sounds: No murmur. Comments: Patient is very anxious and tearful Pulmonary: Effort: Pulmonary effort is normal. No respiratory distress. Breath sounds: Normal breath sounds. Abdominal: Palpations: Abdomen is soft. Tenderness: There is tenderness in the suprapubic area. There is no right CVA tenderness, left CVA tenderness, guarding or rebound. Negative signs include John's sign and McBurney's sign. Musculoskeletal: Right lower leg: She exhibits no swelling. No edema. Left lower leg: She exhibits no swelling. No edema. Skin: General: Skin is warm. Findings: No rash. Neurological: Mental Status: She is alert and oriented to person, place, and time. Psychiatric: Comments: Extremely anxious and tearful Laboratory & Radiological Imaging (if done): Labs Reviewed URINALYSIS - Abnormal; Notable for the following components: Result Value Clarity, Urine Hazy (*) Leukocyte Esterase, Urine Moderate (*) WBCs, Urine 37 (*) Mucus, Urine Few (*) All other components within normal limits Narrative: Microscopic examination is performed on all urinalysis samples and only positive findings are reported. The test for blood on the chemical analytic portion of urinalysis may also be positive due to hemoglobinuria and myoglobinuria and if red blood cells are present they are quantified by microscopic examination. CBC WITH AUTO DIFFERENTIAL - Abnormal; Notable for the following components: WBC 11.18 (*) Neutrophils Abs 8.63 (*) All other components within normal limits HCG URINE, QUALITATIVE - Normal BASIC METABOLIC PANEL - Normal Narrative: The eGFR should be used for monitoring renal function only and not for medication dosing. PT/INR - Normal Narrative: During the induction phase of oral anticoagulation, the INR may not reflect the anticoagulation status of the patient. Therapeutic ranges for INR's are: Most clinical situations: INR 2.0-3.0 Mechanical Prosthetic Valve: INR 2.5-3.5 Critical: INR >5.0 URINE AEROBIC CULTURE CBC AND DIFFERENTIAL Narrative: The following orders were created for panel order CBC w/ Diff. Procedure Abnormality Status --------- ------ CBC Auto Differential[[id number]] Abnormal Final result Please view results for these tests on the individual orders. US Pelvic Transabdominal and Transvaginal (Results Pending) MDM: ED Course as of Dec 13 1117TueDec 13, 2018 0948 Patient refuses ultrasound of pelvis. She and her mother do not available at anything to visit. [SS] 1117 Beta-hCG, Ur, Qual: Negative [SS] 1117 WBC(!): 11.18 [SS] ED Course User Index [SS] Kay Simpson CNP Discussed at length patient's refusal for transvaginal ultrasound to rule out ovarian torsion. Both patient and mother feel usual chronic usual bladder spasms . Patient has an appointment this afternoon with her PLANNED GIVING OFFICER office. Patient is calm after medication. No UTI is evident. Plan to DC home at this time with recommendation to keep her appointment this afternoon. Instructed patient to return to the ED if pain returns. Patient aware that if her symptoms due to ovarian torsion, a surgical emergency, this can result in infertility, severe illness and/or . Both patient and mother verbalized agreement and again expressed confidence that her symptoms are due to her usual chronic history of bladder spasms. Clinical Impression: 1. Spasmodic bladder 2. Suprapubic pain Disposition: Patient is being discharge home. ALEXI Diop ED Advanced Practice Provider [facility] Emergency Department (Please note that portions of this note have been completed with a voice recognition software. Efforts were made to correct any errors, but occasionally words are mis-transcribed.) Kay Simpson CNP 12/13/18 1118 documented in this encounter <item><item><item> Privacy Markings (unrecogniz ed section and content) Section Author: Hazel Singh PROHIBITION ON REDISCLOSURE OF CONFIDENTIAL INFORMATION This notice accompanies a disclosure of information concerning a client made to you with the consent of such client. Section Author: Hazel Singh PROHIBITION ON REDISCLOSURE OF CONFIDENTIAL INFORMATION This notice accompanies a disclosure of information concerning a client made to you with the consent of such client. Section Author: Hazel Singh PROHIBITION ON REDISCLOSURE OF CONFIDENTIAL INFORMATION This notice accompanies a disclosure of information concerning a client made to you with the consent of such client. FOR RECORDS PERTAINING TO PATIENTS WHO ARE OR HAVE BEEN ENROLLED IN A CHEMICAL DEPENDENCY/SUBSTANCEABUSE PROGRAM, SOME INFORMATION MAY BE OMITTED. This clinical summary was aggregated from multiple sources. Caution should be exercised in using it in the provision of clinical care. This summary normalizes information from multiple sources, and as a consequence, information in this document may materially change the coding, format and clinical context of patient data. In addition, data may be omitted in some cases. CLINICAL DECISIONS SHOULD BE BASED ON THE PRIMARY CLINICAL RECORDS. [facility] provides no warranty or guarantee of the accuracy or completeness of information in this document.
[2023-01-12 20:49] LABS: Hemoglobin 12.1 g/dL (12.0-15.0); Mean Corp Hgb Conc 33.6 g/dL (32-36); Mean Corpuscular Hgb 31.8 pg (27.0-32.0); Mean Corpuscular Volume 94.7 fL (81-99); Mean Platelet Vol. 11.9 fl (6.2-12.0); Platelet Count 226 K/mm3 (150-450); RBC Distribution Width CV 12.3 % (11.6-14.6); RBC Distribution Width SD 42.2 fl (35.1-43.9); White Blood Count 18.9 K/mm3 (4.4-11.0)
[2023-01-12 21:08] LABS: AST(SGOT) 41 U/L (15-37); Alanine Aminotransfer ALT/SGPT 39 U/L (13-56); Creatinine, Serum 0.73 mg/dL (0.55-1.02); EST Glomerular Filtration Rate 102 mL/min (>60); Est Glom Filt Rate - Afr Amer 124 mL/min (>60); Estimated Creatinine Clearance 100.85 ml/min; Uric Acid 3.4 mg/dL (2.6-6.0)
[2023-01-12 21:10] LABS: Protein, Urine (Random) < 6.0 mg/dL (<11.9); Protein:Creat Ratio 167 mg/g CRE (0-200)
[2023-01-12 21:12] LABS: Bacteria 0 SEEN /hpf (None Seen); Mucous, Urine 0 SEEN /hpf (<or=2+); Red Blood Cells-Urine 0 SEEN /hpf (0-5)
[2023-01-12 21:13] LABS: Color, Urine Straw (Yellow); Glucose, Dipstick Normal (Normal); Ketone-Dipstick Negative (Negative); Leukocyte Esterase-Dipstick Negative /ul (Negative); Nitrite-Dipstick Negative (Negative); Occult Blood-Urine Negative /ul (Negative); Protein-Dipstick Negative (Negative); Urine Bilirubin Dipstick Negative (Negative); Urine Clarity Clear (Clear); Urine Urobilinogen Normal (Normal)
--- NOTE | 2023-01-12 21:16 | US_ITS ---
INDICATION: RUQ pain EXAMINATION: Ultrasound US Abdomen RUQ (limited) TECHNIQUE: Kingsley scale and color doppler imaging was performed of the right upper quadrant. COMPARISON: None. FINDINGS: LIVER: Normal echotexture. No evidence of a mass. No intrahepatic duct dilation. GALLBLADDER: Mildly distended. No evidence of a stone or sludge. Normal wall thickness. No pericholecystic fluid. Negative sonographic John''s sign. COMMON BILE DUCT: Normal measuring 3 mm in diameter. PANCREAS: Not visualized due to overlying bowel gas. RIGHT KIDNEY: Unremarkable. FREE FLUID: No free fluid in the right upper quadrant. US/Gallbladder IMPRESSION: Normal right upper quadrant ultrasound. Electronically Signed: Prasad Vincent DO at 22:18 EDT ,
[2023-01-12 21:25] LABS: Squamous Epithelial Cells - UA 0-5 SEEN /hpf (5-10); White Blood Cells 0 SEEN /hpf (0-5)
[2023-01-12] MEDS: Ondansetron 4 MG/2 ML Vial IV (21:33)
[2023-01-12] MEDS: Morphine 2 MG/ML Syringe IV (21:33)
[2023-01-12] MEDS: Lactated Ringers 1,000 ML 125 ML IV (21:33)
[2023-01-12 22:01] LABS: Bedside Glucose 71 mg/dL (74-106)
[2023-01-12 22:05] LABS: Partial Thromboplast Time 25.3 Seconds (24.1-36.2); Prothrombin Time (Protime)PT. 12.7 SECONDS (11.7-14.9)
[2023-01-12 22:06] LABS: Fibrinogen 407 mg/dl (203-444)
[2023-01-12 22:12] LABS: Amylase 44 U/L (25-115); Lipase 29 U/L (13-75)
[2023-01-12 22:14] LABS: Uric Acid 3.4 mg/dL (2.6-6.0)
[2023-01-12] MEDS: Morphine 4 MG/ML Syringe IV (22:51)
[2023-01-12] MEDS: 0.9% Saline Lock 10 ML Syringe IV (22:51)
[2023-01-12 23:02] LABS: Ammonia < 10.0 umol/L (11-32)
--- OUTSIDE RECORDS SUMMARY | 2023-01-12 23:06 | XMS RPT_ITS | CCD ---
Author Name Unknown Address [address] [place] [address] Organization [facility] Care Team Providers Care Publication Editor Name Role Phone Sprang, Vicki Unavailable No, Physician Unavailable Unavailable NATALIE, STARR Unavailable Unavailable NATALIE, STARR Unavailable Unavailable NATALIE, TSARR Unavailable Unavailable NATALIE, STARR Unavailable Unavailable Gael, Radha A Unavailable Unavailable Gael, Radha A Unavailable Unavailable No Doctor Assigned, Nodr Unavailable Unavail able No Doctor Assigned, Nodr Unavailable Unavail able Sokari, Telemate Unavailable Unavailable Sokari, Telemate Unavailable Unavailable No Doctor Assigned, Nodr Unavailable Unavail able Coin, Aime W Unavailable Unavailable Coin, Aime W Unavailable Unavailable No Doctor Assigned, [...] Unavailable DON, YARA R Unavailable Unavailable SPRANG, IVCKI A Unavailable Unavailable DON, YARA R Unavailable Unavailable SPRANG, VICKI A Unavailable Unavailable SPRANG, VICKI A Unavailable Unavailable KATHI JIMENEZ ANANT Unavailable Unavailable ANKUSHDONI PELAYO ANANT Unavailable Unavail able SPRANG, VICKI Unavailable Unavailable SPRANG, VICKI Unavailable Unavailable SAMPLE DISPLAY PREPARER, DONNAMARIE Unavailable Unavailable SPRANG, VICKI Unavailable Unavailable SPRANG, VICKI Unavailable Unavailable SAMPLE DISPLAY PREPARER, DONNAMARIE Unavailable Unavailable SPRANG, VICKI Unavailable Unavailable Service Car Operator, Donnamarie Unavailable Unavailable Service Car Operator, Donnamarie Unavailable Unavailable Service Car Operator, Donnamarie Unavailable Unavailable Service Car Operator, Donnamarie Unavailable Unavailable Sprang, Vicki A Unavailable [...] Propensity to adverse reactions to drug (disorder) [facility] Repository Medications Current Medications Medication [...] , Medication=AMOXICI LLIN 500 MG CAPSULE, OriginatingSource= [employer], OriginatingProvide r=CHANTAL RAMIREZ, Duration=30, Refills=1, Date Last [...] blood pressure 80 mm[Hg] No Pcp Required [facility] 12-31-2022 01:03-0400 Heart rate 74 /min No Pcp Required [facility] 12-31-2022 01:03-0400 Respiratory rate 16 /min No Pcp Required [facility] 12-31-2022 01:03-0400 SaO2% (BldA) [Mass fraction] 98 % No Pcp Required [facility] 12-31-2022 01:03-0400 Systolic blood pressure 131 mm[Hg] No Pcp Required [facility] 12-30-2022 22:55-0400 Body height 162.5 cm No Pcp Required [facility] 12-30-2022 22:55-0400 Body temperature 98.06 [degF] No Pcp Required [facility] 12-30-2022 22:55-0400 Body weight 78 kg No Pcp Required [facility] 12-05-2021 01:07-0400 Heart rate 90 /min No Pcp Required [facility] 12-05-2021 01:07-0400 Respiratory rate 18 /min No Pcp Required [facility] 12-05-2021 01:07-0400 SaO2% (BldA) [Mass fraction] 100 % No Pcp Required [facility] 12-04-2021 22:37-0400 Body height 162.5 cm No Pcp Required [facility] 12-04-2021 22:37-0400 Body temperature 98.78 [degF] No Pcp Required [facility] 12-04-2021 22:37-0400 Body weight 66 kg No Pcp Required [facility] 12-04-2021 22:37-0400 Diastolic blood pressure 85 mm[Hg] No Pcp Required [facility] 12-04-2021 22:37-0400 Systolic blood pressure 112 mm[Hg] No Pcp Required [facility] 04-16-2021 16:52-0500 Body height 162.5 cm No Pcp Required [facility] 04-16-2021 16:52-0500 Body temperature 97.7 [degF] No Pcp Required [facility] 04-16-2021 16:52-0500 Diastolic blood pressure 78 mm[Hg] No Pcp Required [facility] 04-16-2021 16:52-0500 Heart rate 71 /min No Pcp Required [facility] 04-16-2021 16:52-0500 SaO2% (BldA) [Mass fraction] 98 % No Pcp Required [facility] 04-16-2021 16:52-0500 Systolic blood pressure 120 mm[Hg] No Pcp Required [facility] 12-13-2018 11:57-0400 BP Diastolic 105 mm[Hg] Adalberto Ho [facility] 12-13-2018 11:57-0400 BP Systolic 168 mm[Hg] Adalberto Ho [facility] 12-13-2018 11:57-0400 Pulse (Heart Rate) 91 /min Adalberto Ho [facility] 12-13-2018 10:45-0400 Pulse Oximetry 99 % Adalberto Ho [facility] 12-13-2018 08:49-0400 Body Temperature 97.39 [degF] Adalberto Ho [facility] 12-13-2018 08:49-0400 Respiratory Rate 22 /min Adalberto Ho [facility] 04-11-2018 08:46-0500 BMI (Body Mass Index) 28.34 [...] 11:12-0500 BMI (Body Mass Index) 23.87 kg/m2 [facility] 06-27-2017 11:12-0500 Body Temperature 98.49 [degF] [facility] 06-27-2017 11:12-0500 BP Diastolic 82 mm[Hg] [facility] 06-27-2017 11:12-0500 BP Systolic 129 mm[Hg] [facility] 06-27-2017 11:12-0500 Height 163.7 cm [facility] 06-27-2017 11:12-0500 Pulse (Heart Rate) 70 /min [facility] 06-27-2017 11:12-0500 Respiratory Rate 15 /min [facility] 06-27-2017 11:12-0500 Weight 63.96 kg [facility] Encounters Encounter Date Encounter Type Care Provider Facility Start: 12-30-2022 End: 12-31-2022 Emergency department patient visit Aime King [facility] Emergency 14 Start: 07-05-2022 End: 07-05-2022 Emergency department patient visit Dr. Prashanth Moise Facility:[id number] Start: 06-06-2022 End: 06-06-2022 Emergency department patient visit Mr. Ian Glover Facility:[id number] Start: 12-04-2021 End: 12-05-2021 Emergency department patient visit Catarino Cervantes [facility] Emergency Start: 04-16-2021 End: 04-16-2021 Emergency department patient visit Edilberto Tellez [facility] 02 Start: 12-13-2018 End: 12-13-2018 Emergency department patient visit PHYSICIAN ELLIE [facility] Start: 12-13-2018 End: 12-13-2018 Emergency department patient visit Adalberto Ho Work Phone: [facility] Emergency Department Procedures Date Procedure Procedure [...] 10-24-2022 Tetanus vaccination TETANUS EVERY 10 YR [facility] Start: 11-18-2020 Screening for malignant neoplasm of cervix PAP SMEAR [facility] Start: 12-02-2019 History and physical examination, annual for health maintenance Wellness Visit [facility] Start: 12-02-2019 Screening for Chlamydia trachomatis Chlamydia Screening [facility] Start: 12-24-2018 Influenza vaccination given SEQUENTIAL INFLUENZA VACCINE (#1) [facility] Start: 04-19-2018 End: 04-19-2018 Ambulatory 04/19/2018 Scanned Document General Surgery Gabriela Jacobs MD [address] [place], [place] [id number] [phone] [facility] Start: 12-24-2017 Influenza vaccination SEQUENTIAL INFLUENZA VACCINE (#1) [facility] Start: 07-13-2017 Ambulatory 07/13/2017 Office Visit Urogynecology Kathi Jimenez MD [address] [place] [address] [phone] [facility] Start: 06-27-2017 Ambulatory 06/27/2017 Office Visit Urogynecology Kathi Jimenez MD [address] [place] [address] [phone] [facility] Start: 12-24-2016 Influenza vaccination SEQUENTIAL INFLUENZA VACCINE (#1) [facility] Work Phone: Start: 03-08-2014 Vaccination for human papillomavirus HPV VACCINES (2 - Female 3-dose series) [facility] Start: 2007 Vaccination for human papillomavirus [facility] Work Phone: Start: 1996 Screening for malignant neoplasm of cervix PAP SMEAR [facility] Start: 1996 Tetanus vaccination TETANUS EVERY 10 YR [facility] Work Phone: End: 12-13-2018 Bacteria identified Aer cx Nom (Unsp spec) Urine Aerobic Culture Microbiology Routine Once for 1 Occurrences starting 12/13/2018 until 12/13/2018 [facility] Immunizations Immunization Date Immunization Notes Care Provider Farrukh comer 02-08-2014 HPV, unspecified formulation Adalberto Ho [facility] Payers Date Payer Category Payer Unknown 2017 Medicaid xxxxxxxxxxx 2.1 [id number] 2017 Unknown [id number] 2016 Medicaid 1996 Unknown [id number] 2.16.8 [id number] 1996 Unknown [id number] 2.16.8 [id number] 1996 Unknown [id number] 2.16.8 [id number] 1996 Unknown [id number] 2.16.8 [id number] 1996 Unknown [id number] 2.16.8 [id number] 1996 Unknown [id number] 2.16.8 [id number] 1996 Unknown [id number] 2.16.8 [id number] 1996 Unknown [id number] 2.16.8 [id number] Medicaid [id number] 2. [id number] Medicaid [id number] 2. [id number] Unknown [id number] Social History Date Type Detail Facility Start: 06-27-2017 End: 12-13-2018 Tobacco smoking status [facility] Never smoker [facility] Sex Assigned At Not on file [facility] Work Phone: Start: 03-04-2017 Tobacco smoking stat [facility] Unknown if ever smoked [facility] Work Phone: Start: 12-13-2018 Alcohol intake Current non-dr continuous churn buttermaker of alcohol (finding) [facility] Goals Date Patient Goal Desired Activity /State [...] Documents on File Type Date Recorded Patient Label Designer Expl ramon Advance Directives and Isa garcias Will 12/13/2018 9:34 AM Reason for Referral Status Reason Specialty Diagnoses / Procedures Referred By Contact Referred To Contact Closed General Surgery Diagnoses Mass of right axilla Vicki Lentz CNP [address] [place] [id number] History of Present Illness * Gabriela Jacobs MD - 04/11/2018 9:05 AM EST Formatting of this note may be different from the original. [facility] PATIENT: Ronaldo Erazo DATE / TIME: 04/11/18 [...] Laterality Date CYSTO CYSTO 04/06/2017 Urethral pain..... [facility] NERVE BLOCK 06/2017 back TONSILLECTOMY 2010 [...] LIPASE Right axillary ultrasound 06/24/2017 Accession No: [id number] Performed: Jun 24 2017 3:27PM Examination: RIGHT US EXTREMITY NON-VASCULAR LMITED EXAMINATION: US EXTREMITY NON-VASCULAR LIMITED RIGHT [id number] CLINICAL HISTORY: 22-year-old female with increasing palpable lump in the right axilla. Originally noticed at least two years ago, but now increasing in size and causing right upper extremity tingling. The lump is not painful. COMPARISON: None available. TECHNIQUE: Pantoja-scale images were performed by the electrolysis needle operator of the palpable abnormality in the right [...] Erazo. in this encounter Procedure Findings Note [facility] [address], [place] [address]RRUX RONALDO ERAZO [facility] [id number] 1996DATEOPERATIVE REPORT / PROCEDURE NOTESURGEON GABRIELA MADISON, [...] KAY is not transferring the patient to [facility] at this time. Dr. Carbajal suggested pyridium or urabel be given for spasms or pain, no narcotics and treat with appropriate atb, f/u with [facility] urogynecologist for further symptoms. Venita stated imaging was negative, lab positive for UTI.in this encounter INFORMATION SOURCE (unrecogn ized section and content) DATE CREATED AUTHOR AUTHOR'S ORGANIZ ATION 10/12/2017 [facility] DATE CREATED AUTHOR AUTHOR'S ORGANIZ ATION 10/13/2017 [facility] DATE CREATED AUTHOR AUTHOR'S ORGANIZ ATION 10/14/2017 [facility] DATE CREATED AUTHOR AUTHOR'S ORGANIZ ATION 10/17/2017 [facility] DATE CREATED AUTHOR AUTHOR'S ORGANIZ ATION 04/21/2018 [facility] DATE CREATED AUTHOR AUTHOR'S ORGANIZ ATION 04/24/2018 [facility] DATE CREATED AUTHOR AUTHOR'S ORGANIZ ATION 12/05/2018 [facility] DATE CREATED AUTHOR AUTHOR'S ORGANIZ ATION 12/18/2018 [facility] DATE CREATED AUTHOR AUTHOR'S ORGANIZ ATION 07/09/2022 [facility] Reason for Visit (unrecogniz ed section and content) Status Reason Specialty Diagnoses / Procedures Referred By Contact Referred To Contact Closed General Surgery Diagnoses Mass of right axilla Vicki Lentz, [employer] [address] [place] [address] Reason Comments Urinary Retention PT WITH HX OF BLADDE R SPASMS; THIS EPISODE STARTED LAST PM ACUTELY WORSE 5AM THIS MORNING Dianna Dodge RN - 12/13/2018 11:35 AM EDTSKay quispe CNP - 12/13/2018 8:53 AM EDT ED Notes (unrecognized secti on and content) Advanced Practice Provider (DAVID) at bedside. [facility] ED DAVID Note: NAME: Ronaldo Erazo 23 y.o. CSN: [id number] PCP: Physician No History: Chief Complaint: Urinary [...] for this complaint. She currently sees an PRINTING SUPERVISOR that had started her on daily Macrobid and she reports she has been spasm free for 10 months. Patient will be seeing her YACHT BUILDER this afternoon for this complaint. PMHx: Past Medical History: Diagnosis Date Acne Bladder infection Depression PMSx: Past Surgical History: Procedure Laterality Date CYSTO CYSTO 04/06/2017 Urethral pain..... [facility] EXCISION Right 04/19/2018 axillary mass-lipoma....Dr. [...] file Gets together: Not on file Attends yazidism service: Not on file Active member of [...] Procedure Abnormality Status --------- ------ CBC Auto Differential[[id number]] Abnormal Final result Please view results for [...] has an appointment this afternoon with her YACHT BUILDER office. Patient is calm after medication. No [...] home. ALEXI Diop ED Advanced Practice Provider [facility] Emergency Department (Please note that portions of [...] BE BASED ON THE PRIMARY CLINICAL RECORDS. [employer] [facility]. provides no warranty or guarantee of the accuracy or completeness of information in this document.
[2023-01-12] MEDS: LACTATED RINGERS 500 ML 999 ML IV (23:10)
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
[2023-01-12 23:34] LABS: LDH 255 U/L (84-246)
[2023-01-12] MEDS: Sodium Citrate/Citric Acid 30 ML UDC PO (23:35)
[2023-01-12] MEDS: Labetalol (Prefilled) 20 MG/4 ML 10 MG IV (23:35)
[2023-01-12] MEDS: Acetaminophen 500 MG Tablet 1000 MG PO (23:35)
[2023-01-12 23:37] LABS: Syphilis Antibodies Non-reactive
[2023-01-12] MEDS: Magnesium Sulfate 4gm/100mL 2 GM/50 ML IV.SOLN. IV (23:38)
[2023-01-12] MEDS: Cefazolin 2 GM in 0.9% Normal Saline (100mL Bag) 100 ML IV (23:39)
[2023-01-12] MEDS: Magnesium Sulfate 4gm/100mL 4 GM/100 ML IV.SOLN. IV (23:59)
[2023-01-13] VITALS (29 sets, daily range): BP systolic 111–152; BP diastolic 62–94; PULSE 65–88; RESP 11–19; TEMP 36.4–37.1; O2SAT 95–99
[2023-01-13] MEDS: Magnesium Sulfate 20 GM/500 ML BAG IV ×4 (00:10→19:44)
--- NOTE | 2023-01-13 00:41 | OP.PCM_ITS ---
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 (4) Supervision of high risk , antepartum: COMMENT: PRR MARCO ANTONIO 02/21/23 boy [place] (5) : QUALIFIERS: Weeks of gestation: 33 weeks Qualified Code(s): Z3A.33 - 33 weeks gestation of COMMENT: NIPT low risk, had early ultrasound, nl anatomy (6) Cystitis: COMMENT: nitrofurantoin postcoital Maternal Data Information MARCO ANTONIO Calculator Estimated Delivery Date Method Current WG Current Estimate 02/21/23 Ultrasound #1 34w 3d Final MARCO ANTONIO Source: US <20 weeks Gestational age: 34 weeks 3 days [place] Doctor Who Attended Delivery: Laura Hernandez Details Operative Information Date of Procedure: 01/13/23 Pre-Operative Diagnosis: 27 y/o @ 34 weeks 2 days, severe pre-eclampsia, remote from delivery Post-Operative Diagnosis: 27 y/o @ 34 weeks 2 days, severe pre-eclampsia, remote from delivery Classification: FRANKIE Procedure Type: low transverse data analysis assistant #1: Agnes Lee Type of Anesthesia: Epidural Antibiotic Given: Ancef 2 grams IV x1 Estimated Blood Loss: 300cc Findings Description of Procedure: The patient is a 27 y/o @ 34 weeks 2 days who presents to L&D with the complaint of RUQ pain and found to have slight elevations in liver enzymes with elevated blood pressures in the severe range and headache with visual changes. The decision was made to proceed with immediate delivery. Spinal anesthesia was placed without difficulty. Cobb catheter was placed. The patient was placed in the dorsal supine position with leftward tilt. Patient was prepped and draped in the normal sterile fashion. Pfannenstiel skin incision was made with the scalpel and carried through to the underlying layer of fascia with the scalpel. Fascia was nicked in the midline and the incision extended laterally. The peritoneum was entered digitally. The incision was stretched and a low transverse uterine incision was made with the scalpel. The infant's head was delivered atraumatically followed by the anterior and posterior shoulders without complication the rest of the delivered. The cord was clamped and cut and the infant was handed off to awaiting nurse. The placenta was delivered spontaneously immediately following and was noted to be intact and have a three- vessel cord. The uterus was exteriorized cleared of all clots and debris, and the incision was closed in a double layer closure using #1vicryl and #1 Monocryl. The ovaries and fallopian tubes were noted to be within normal limits. The uterus was returned to the maternal abdomen and gutters were cleared of all clots and debris. The appendix was visualized and palpated to be soft with normal color, texture and mobility. The peritoneum was closed with 3- 0 Monocryl in a running fashion. The Fascia was closed with 0 PDS in a running fashion. Subcutaneous tissue was copiously irrigated and the skin was closed with 3-0 Monocryl in a subcuticular fashion. Mepilex dressing was applied without complication. Patient was taken to recovery in stable condition. It was discussed with the patient that based on the clinical information obtained during this encounter, combined with her history, at this time I would recommend or repeat for future deliveries if further pregnancies are desired. Presentation: Positive for Vertex Amniotic Membrane Rupture Type: Artificial Amniotic Fluid Description: Clear Placental Delivery Description: Manual Removal Placenta Disposition: [facility] Cord Vessel Description: 3 Vessels Cord Entanglement: None Infant A Gender: Male (1 minute): 9 (5 minute): 9 Complications Risks of Surgery Discussed w/Patient: Bleeding, Anesthesia Risks, Infection, Need for Future C-Sections and Injury to surrounding structure(s) including bowel and bladder Multi Select Codes Urinary/Genital Urinary/Genital CPT Codes: 79681 Delivery [facility]
--- NOTE | 2023-01-13 00:48 | PCM.DC ---
Discharge Instructions Diet Discharge Diet: No restrictions Activity Discharge Activity: May Not Drive (for 2 weeks or while taking narcotic pain medications.), May Shower and May Take a Tub Bath (in 7 days.) May resume sexual activity in: 4-6 weeks Weight Bearing Status: Full weight bearing Lifting Restrictions: 20 pounds Dressing / Incision Call your doctor if your incision/area has: Continuous Slow Oozing, Sudden Increased Bleeding, Increased Pain/ Swelling, Increased Redness and Foul Smelling Discharge Call your doctor if you observe: Fever of 101 or Higher and Using more than 1 pad per hour Suture Line Care: Avoid Pulling/Pushing and Avoid Pinching/Bending Cleanse incision/area with: Soap & Water and Keep Dressing Clean & Dry Follow Up Care Please Follow Up With: Luisa Villegas DO When: Call [phone] to make an appointment for an incision check in 1-2 weeks. Test Results: Test results from this visit will be discussed in further detail at your follow-up appointment, if applicable. Discharge Plan Admission Admit Date/Time: 01/12/23 23:00 Primary Reason for Your Visit: severe pre-eclampsia Attending Provider: Luisa Villegas Primary Care Provider: Stephanie Hansen Primary Discharge Orders/Prescriptions Prescriptions: New oxycodone-acetaminophen [Percocet] 5-325 mg tablet 1 tab PO Q4H PRN (Reason: pain) 7 Days Qty: 20 0RF Rx Instructions: 1-2 tabs q 4 hrs as needed for pain naproxen 500 mg tablet 500 mg PO BID PRN (Reason: pain) Qty: 30 0RF No Action PNV-[place] 28-1-300 mg capsule 1 cap PO DAILY Referrals / Follow Up: Care Physician,Stephanie Primary [Primary Care Provider] - Disposition Disposition (needs filled in before D/C Order can be placed): Home, Self Care
[2023-01-13] MEDS: Oxytocin 15 Units/NS 250ml 15 UNITS/250 ML IV.SOLN 83 UNITS IV (01:15)
[2023-01-13 01:45] LABS: Group B Strep DNA By PCR Negative (Negative); Internal Control PASS; Probe Check PASS; Specimen Processing Control PASS
[2023-01-13] MEDS: Ketorolac 30 MG/ML Syringe IV ×4 (01:50→20:45)
[2023-01-13] MEDS: 0.9% Saline Lock 10 ML Syringe IV (01:50)
[2023-01-13] MEDS: Labetalol 200 MG Tablet PO ×3 (02:15→18:45)
--- NOTE | 2023-01-13 02:47 | CT_ITS ---
INDICATION: distended gallbladder -- NO contrast EXAMINATION: CT Abdomen And Pelvis W/O Contrast Injection TECHNIQUE: Helically acquired images were obtained of the abdomen and pelvis with sagittal and coronal reconstructed images. Individualized dose optimization techniques were used for this CT. IV contrast dosage and agent: None. Oral contrast: None. COMPARISON: 01/12/2023 ultrasound. FINDINGS: VESSELS: No abdominal aortic aneurysm. LIVER: No intrahepatic or extrahepatic biliary duct dilation. GALLBLADDER: No calcified stones. No evidence of cholecystitis. PANCREAS: No focal solid or cystic mass. No evidence of pancreatitis. SPLEEN: Normal. ADRENAL GLANDS: Normal. KIDNEYS AND URETERS: No urinary tract stone. No hydronephrosis or hydroureter. No significant asymmetric perinephric stranding. URINARY BLADDER: Nondistended with a Cobb catheter in place. BOWEL: No evidence of diverticulosis or diverticulitis. Appendix not identified. No evidence of bowel obstruction. REPRODUCTIVE ORGANS: Heterogeneously enlarged uterus consistent with history of recent . PERITONEUM: Small amount of intraperitoneal free fluid or free air consistent with history of recent section. LYMPH NODES: No pathologically enlarged mesenteric or retroperitoneal lymph nodes. ABDOMINAL WALL: No abdominal or pelvic wall hernia. BONES: No acute abnormality. LOWER CHEST: Bibasilar atelectasis and trace bilateral pleural effusions. CT/Abdomen/Pelvis without Cont IMPRESSION: 1. Post surgical changes consistent with history of recent . Otherwise no evidence of an acute intra-abdominal abnormality. 2. Bibasilar atelectasis and trace bilateral pleural effusions. Electronically Signed: Prasad Vincent DO at 4:03 EDT ,
[2023-01-13] MEDS: Lactated Ringers 1,000 ML 50 ML IV (04:30)
[2023-01-13] MEDS: Acetaminophen 500 MG Tablet 1000 MG PO ×3 (05:21→18:45)
--- NOTE | 2023-01-13 08:14 | PN.OBGYN_ITS ---
Subjective Subjective Patient is in the NICU as the baby is [facility]. She is crying but states that she feels better this am in terms of her pain level. Per Dr. Hernandez, the patient is refusing a lot of the normal interventions for the baby. For example, she is refusing to give vitamin K to prevent bleeding and stroke. The Father of the baby is agreeing to this but she is not. Objective Data Objective Data Vital Signs: Vital Signs Temp Pulse Resp BP Pulse Ox O2 Del Method 97.5 F L 75 13 115/82 H 98 Room Air 01/13/23 07:05 01/13/23 07:05 01/13/23 07:05 01/13/23 07:05 01/13/23 07:05 01/13/23 07:05 Oxygen Delivery Method Room Air Weight: 176 lb 4 oz Body Mass Index (BMI) 30.2 Intake & Output: Intake and Output for Last 24 Hours 01/11/23 01/12/23 01/13/23 23:59 23:59 23:59 Intake Total 500 / 552.5 1685.41 / 1685.41 Output Total 1030 / 1030 Balance 500 / 552.5 655.41 / 655.41 Lab / Micro Data 01/12/23 20:35 01/12/23 20:35 Labs: Laboratory Results - last 24 hr 01/12/23 20:35: WBC 18.9 H, RBC 3.80 L, Hgb 12.1, Hct 36.0 L, MCV 94.7, MCH 31.8, MCHC 33.6, RDW Std Deviation 42.2, RDW Coeff of Livia 12.3, Plt Count 226, MPV 11.9, PT 12.7, INR 1.0, APTT 25.3, Fibrinogen 407, Creatinine 0.73, Estim Creat Clear Calc 100.85, Est GFR (MDRD) Af Amer 124, Est GFR (MDRD) Non-Af 102, Uric Acid 3.4 01/12/23 20:35: Uric Acid 3.4, AST 41 H, ALT 39, Lactate Dehydrogenase 255 H, Amylase 44, Lipase 29, Urine Color Straw, Urine Clarity Clear, Urine pH 7.0, Ur Specific [place] 1.010, Urine Protein Negative, Urine Glucose (UA) Normal, Urine Ketones Negative, Urine Occult Blood Negative, Urine Nitrite Negative, Urine Bilirubin Negative, Urine Urobilinogen Normal, Ur Leukocyte Esterase Negative, Urine RBC 0 SEEN, Urine WBC 0 SEEN, Ur Squamous Epith Cells 0-5 SEEN, Urine Bacteria 0 SEEN, Urine Mucus 0 SEEN, U Random Total Protein < 6.0, Urine Creatinine 33.60, Protein/Creatinin Ratio 167, Syphilis Total Ab Non-reactive, Blood Type A POSITIVE, Antibody Screen NEGATIVE, Antibody Identification NE GATIVE ANTIBODY PANEL 01/12/23 20:35: Antibody Identification NEGATIVE ANTIBODY PANEL 01/12/23 21:42: POC Glucose 71 L 01/12/23 22:15: Ammonia < 10.0 L 01/12/23 22:35: Group B Strep DNA Negative, Specimen Comment Not Reportable Radiography Diagnostic Testing: Radiology Impression Gallbladder Ultrasound 01/12/23 21:16 IMPRESSION: Normal right upper quadrant ultrasound. Electronically Signed: Prasad VincentDO at 22:18 EDT , Abdomen/Pelvis CT 01/13/23 02:47 IMPRESSION: 1. Post surgical changes consistent with history of recent . Otherwise no evidence of an acute intra-abdominal abnormality. 2. Bibasilar atelectasis and trace bilateral pleural effusions. Electronically Signed: Prasad VincentDO at 4:03 EDT , ROS Constitutional Constitutional: Reports systems reviewed and no addt'l complaints, except as documented Cardiovascular Cardiovascular: Denies chest pain, dizziness, dyspnea or irregular heart rhythm Respiratory/Chest Respiratory/Chest: Denies cough, pain on inspiration or shortness of breath at rest Gastrointestinal Gastrointestinal: Denies abdominal pain, nausea or vomiting Genitourinary Genitourinary: Denies burning urination Musculoskeletal Musculoskeletal: Denies muscle cramps, muscle spasms or muscle weakness Neurologic Neurologic: Denies confusion, dizziness, headache(s) or lack of coordination Psychiatric Psychiatric: Denies anxiety, behavioral changes or depression Physical Exam HEENT normocephalic Resp normal respiratory effort and normal air movement GI soft to palpation, non-tender and non-distended Rectal Exam: other Other Details: Incision is clean, dry, and intact no CVA tenderness Extremity normal to inspection General Extremity: edema bilateral (trace ) Assessment & Plan (1) Status post section: (2) Severe pre-eclampsia: (3) Supervision of high risk , antepartum: COMMENT: PRR MARCO ANTONIO 02/21/23 boy Turner (4) : QUALIFIERS: Weeks of gestation: 33 weeks Qualified Code(s): Z3A.3 3 - 33 weeks gestation of COMMENT: NIPT low risk, had early ultrasound, nl anatomy PLAN: Plan s/p LTCS PPD # 0 severe pre-eclampsia. 1. continue magnesium sulfate for 24 hrs from delivery. 200 labetalol tid for severe pre-e treatment -considering asking [facility] to accept a maternal transport if patient is stable 2. breast feeding- support given as baby is being transported 3. rh positive 4. rubella immune 5. non-compliance with intervention per baggage checker. - consider social/psych services consultation to help determine root cause for her decisions 6. leukocytosis of unknown origin- rpt cbc pending. CT was negative for cholecystitis and intraoperatively there was no sign of appendicitis.
[2023-01-13 09:04] LABS: Absolute Lymphocyte Count 1.95 X10^3/uL (0.83-4.51); Absolute Neutrophil Count 12.2 X10^3/uL (2.0-7.7); Basophil# 0.03 X10^3/uL; Basophil% 0.2 % (0-1); Eosinophil# 0.05 X10^3/uL; Eosinophils% 0.3 % (0-5); Hematocrit 30.3 % (37-47); Hemoglobin 10.2 g/dL (12.0-15.0); Lymphocyte # 1.95 X10^3/ul (0.83-4.51); Lymphocyte % 12.7 % (19-41); Mean Corp Hgb Conc 33.7 g/dL (32-36); Mean Corpuscular Hgb 32.1 pg (27.0-32.0); Mean Corpuscular Volume 95.3 fL (81-99); Mean Platelet Vol. 10.7 fl (6.2-12.0); Monocyte# 1.11 X10^3/uL; Monocyte% 7.2 % (0-10); NRBC Flagged by Analyzer 0 % (0-5); Neutrophil # 12.16 X10^3/uL (2.7-7.7); Platelet Count 134 K/mm3 (150-450); RBC Distribution Width CV 12.3 % (11.6-14.6); RBC Distribution Width SD 42.7 fl (35.1-43.9); Red Blood Count 3.18 M/mm3 (4.2-5.4); White Blood Count 15.4 K/mm3 (4.4-11.0)
[2023-01-13] MEDS: Senna/Docusate Sodium 1 Tablet PO (10:29)
[2023-01-13] MEDS: Prenatal Vits Tablet 1 TABLET PO (12:31)
[2023-01-13] MEDS: Enoxaparin 40 MG/0.4 ML Syringe SC (12:34)
--- NOTE | 2023-01-13 14:11 | NURSING ---
This instructor reviewed the documentation and was present for all medication administration from Columba Fuller student nurse.
[2023-01-14] VITALS: BP 126/89; PULSE 91; RESP 16; TEMP 36.6; O2SAT 98
[2023-01-14] MEDS: Acetaminophen 500 MG Tablet 1000 MG PO ×3 (00:40→12:02)
[2023-01-14] MEDS: Naproxen 500 MG Tablet PO ×2 (02:22→10:34)
[2023-01-14] MEDS: Labetalol 200 MG Tablet PO ×2 (02:22→10:34)
[2023-01-14 02:24] VITALS: BP 127/79; PULSE 80; RESP 15; TEMP 36.9; O2SAT 97
[2023-01-14 06:04] LABS: Absolute Lymphocyte Count 2.05 X10^3/uL (0.83-4.51); Absolute Neutrophil Count 7.6 X10^3/uL (2.0-7.7); Basophil# 0.04 X10^3/uL; Basophil% 0.4 % (0-1); Eosinophil# 0.15 X10^3/uL; Eosinophils% 1.4 % (0-5); Hemoglobin 9.3 g/dL (12.0-15.0); Lymphocyte # 2.05 X10^3/ul (0.83-4.51); Lymphocyte % 18.8 % (19-41); Mean Corp Hgb Conc 33.2 g/dL (32-36); Mean Corpuscular Hgb 32.1 pg (27.0-32.0); Mean Corpuscular Volume 96.6 fL (81-99); Mean Platelet Vol. 10.7 fl (6.2-12.0); Monocyte# 1.04 X10^3/uL; Monocyte% 9.5 % (0-10); NRBC Flagged by Analyzer 0 % (0-5); Neutrophil # 7.56 X10^3/uL (2.7-7.7); Neutrophil % 69.2 % (47-70); Platelet Count 140 K/mm3 (150-450); RBC Distribution Width CV 12.8 % (11.6-14.6); White Blood Count 10.9 K/mm3 (4.4-11.0)
[2023-01-14 07:41] LABS: ALB/GLOB Ratio 0.8 RATIO (0.9-2.4); AST(SGOT) 49 U/L (15-37); Alanine Aminotransfer ALT/SGPT 62 U/L (13-56); Alkaline Phosphatase 76 U/L (45-117); Anion Gap 4 (5-15); BUN 9 mg/dL (7-18); BUN/Creat Ratio 13.3 RATIO (10-20); Calcium,Total 6.7 mg/dL (8.5-10.1); Chloride 110 mmol/L (98-107); Creatinine, Serum 0.68 mg/dL (0.55-1.02); EST Glomerular Filtration Rate 111 mL/min (>60); Est Glom Filt Rate - Afr Amer 135 mL/min (>60); Estimated Creatinine Clearance 108.26 ml/min; Globulin 2.6 g/dL (2.2-4.2); Glucose 80 mg/dL (74-106); Potassium 3.9 mmol/L (3.5-5.1); Protein, Total 4.6 g/dL (6.4-8.2); Sodium Level 139 mmol/L (136-145)
--- NOTE | 2023-01-14 08:12 | PN.OBGYN_ITS ---
Subjective Subjective Patient doing well without complaints. Tolerating PO. Ambulating and voiding without difficulty. Feeding well. Denies chest pain, shortness of breath, calf pain/swelling, fevers, chills, lightheadedness. The RUQ pain is resolved. Her baby in [place] is doing well and she is requesting to be discharge to be with him. Objective Data Objective Data Vital Signs: Vital Signs Temp Pulse Resp BP Pulse Ox O2 Del Method 98.5 F 80 15 127/79 H 97 Room Air 01/14/23 02:24 01/14/23 02:24 01/14/23 02:24 01/14/23 02:24 01/14/23 02:01/14/23 02:24 Oxygen Delivery Method Room Air Weight: 176 lb 4 oz Body Mass Index (BMI) 30.2 Intake & Output: Intake and Output for Last 24 Hours 01/12/23 01/13/23 01/14/23 23:59 23:59 23:59 Intake Total 500 / 552.5 5174.58 / 5474.58 653.25 / 653.25 Output Total 4810 / 4810 Balance 500 / 552.5 364.58 / 664.58 653.25 / 653.25 Lab / Micro Data 01/14/23 05:55 01/14/23 05:55 Labs: Laboratory Results - last 24 hr 01/13/23 08:53: WBC 15.4 H, RBC 3.18 L, Hgb 10.2 L, Hct 30.3 L, MCV 95.3, MCH 32.1 H, MCHC 33.7, RDW Std Deviation 42.7, RDW Coeff of Livia 12.3, Plt Count 134 L, MPV 10.7, Immature Gran % (Auto) 0.600, Neut % (Auto) 79.0 H, Lymph % (Auto) 12.7 L, [place] % (Auto) 7.2, Eos % (Auto) 0.3, Baso % (Auto) 0.2, Absolute Neuts (auto) 12.2 H, Absolute Lymphs (auto) 1.95, Nucleated RBC % 0 01/14/23 05:55: WBC 10.9, RBC 2.90 L, Hgb 9.3 L, Hct 28.0 L, MCV 96.6, MCH 32.1 H, MCHC 33.2, RDW Std Deviation 44.0 H, RDW Coeff of Livia 12.8, Plt Count 140 L, MPV 10.7, Immature Gran % (Auto) 0.700, Neut % (Auto) 69.2, Lymph % (Auto) 18.8 L, [place] % (Auto) 9.5, Eos % (Auto) 1.4, Baso % (Auto) 0.4, Absolute Neuts (auto) 7.6, Absolute Lymphs (auto) 2.05, Nucleated RBC % 0, Sodium 139, Potassium 3.9, Chloride 110 H, Carbon Dioxide 25.0, Anion Gap 4 L, BUN 9, Creatinine 0.68, Estim Creat Clear Calc 108.26, Est GFR (MDRD) Af Amer 135, Est GFR (MDRD) Non-Af 111, BUN/Creatinine Ratio 13.3, Glucose 80, Calcium 6.7 L, Total Bilirubin 0.20, AST 49 H, ALT 62 H, Alkaline Phosphatase 76, Total Protein 4.6 L, Albumin 2.0 L, Globulin 2.6, Albumin/Globulin Ratio 0.8 L ROS Constitutional Constitutional: Denies chills, fatigue, fever(s), poor appetite or weakness Eyes Eyes: Denies blurry vision, change in vision, seeing flashes or spots in vision ENT HEENT: Denies dizziness, headache(s), loss taste/smell or sore throat Cardiovascular Cardiovascular: Denies chest pain, dizziness, dyspnea, irregular heart rhythm, p alpitations or rapid heart rate Respiratory/Chest Respiratory/Chest: Denies chest tightness, cough, dyspnea or breast pain Gastrointestinal Gastrointestinal: Denies abdominal pain, constipation or vomiting Genitourinary Genitourinary: Denies dysuria or flank pain Musculoskeletal Musculoskeletal: Denies difficulty walking, joint pain, limited range of motion or numbness Neurologic Neurologic: Denies abnormal movements, abnormal speech, dizziness, numbness, seizure-like activity or syncope Psychiatric Psychiatric: Denies anxiety, behavioral changes, change in appetite, confusion, depression or suicidal thoughts Physical Exam Const alert, oriented x3 and no apparent distress General Appearance: cooperative and comfortable Resp normal respiratory effort Cardio regular rate GI normal to inspection, nondistended, normoactive bowel sounds GI Narrative: uterus is firm below umbilicus Palpation: soft Back/Spine no CVA tenderness and thoraco-lumbar ROM normal Extremity normal to inspection, no clubbing, cyanosis or edema, no calf tenderness and no pedal edema Psych mental status grossly normal, thought process normal, cooperative, affect normal, speech normal, activity/motor behavior normal, denies homicidal ideation and denies suicidal ideation Assessment & Plan (1) Status post section: (2) Severe pre-eclampsia: (3) Elevated blood pressure reading in office with diagnosis of hypertension: COMMENT: repeat bps WNL, given steroids on l and d 01/07 and 01/08 (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 (5) Supervision of high risk , antepartum: COMMENT: PRR MARCO ANTONIO 02/21/23 boy [place] (6) : QUALIFIERS: Weeks of gestation: 33 weeks Qualified Code(s): Z3A.33 - 33 weeks gestation of COMMENT: NIPT low risk, had early ultrasound, nl anatomy (7) Cystitis: COMMENT: nitrofurantoin postcoital (8) Leukocytosis: COMMENT: resolved on post op day #1 PLAN: Plan s/p LTCS PPD # 1- section for severe pre-eclampsia 1. routine post care, change dressing today before discharge 2. breast feeding- support given 3. rh positive 4. rubella immune 5. leukocytosis- resolved 6. continue labetalol 200 tid and careful bp monitoring. return to hospital if develops chest pain, severe headache, visual changes or return of RUQ pain
[2023-01-14 09:06] VITALS: BP 131/86; PULSE 73; RESP 18; TEMP 36.2
[2023-01-14] MEDS: Enoxaparin 40 MG/0.4 ML Syringe SC (10:32)
[2023-01-14] MEDS: Senna/Docusate Sodium 1 Tablet PO (10:33)
--- NOTE | 2023-01-14 11:23 | CASEMGMT ---
Social Work Assessment Labor and Delivery Unit Patient Address:[address] [place] [address] Phone number: [phone] Date of Referral: 01/13/23 Time of Referral:? 1103 Referred By: Luisa Villegas Date of Intervention: ??01/14/23 Time of Intervention:? 1000 Reason for Referral:? pt withdrawn- transferred to [facility] Sw completed chart review and discussed concerns with bedside RN. Sw presented to bedside and introduced self to mother of baby (MARSHA- Deidre). Sw explained reason for sw involvement and completed psychosocial assessment. Due to MOB flat affect sw asked MOB to complete [place] Depression Scale. History obtained from: medical records and mother of baby (MOB)?? Household composition: MARSHA states that currently residing in the home is herself, FOB and now baby when medically ready for discharge from NICU. Patient's parent/guardian status: MARSHA states that she met FOB because her father coached him in basketball. MOB states that they have been together for 6 or 7 years. MOB denies any issues at home regarding domestic violence or intimate partner violence. Medical History: MARSHA is 1, para 0- now 1. MARSHA reports that she was not feeling the best on Tuesday after working all day and called into the hospital, and was told she should come in. Upon arrival to hospital MARSHA was told that her pre-eclampsia is too concerning and she was going to need to deliver baby via emergent . MOB states that this was very traumatizing to her because she was hoping to do an all natural delivery with minimal interventions. Baby boy, named Nelson Monique, was born on [birth year] at 34 weeks gestation weighing 4lb 5oz and his apgars were 9 and 9 at one and five minutes of life respectfully. Baby had respiratory distress and did require to be transferred to [facility] NICU. MOB is pumping to be able to provide breast milk to baby. MOB states that baby will be followed by [facility] for [facility] care. MOB is hoping that her blood pressure is where it needs to be today so that she is able to be discharged so she is able to go see baby at [facility] NICU. Educational Status:?Both parents graduated high school, and have college degrees. 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 MOB states that she is able to take off as much time as she needs for recovery/ maternity leave. MOB states that LUIS ENRIQUE is a teacher aide and he is also able to take 6 weeks off of work for paternity leave. Infant Supplies:?MOB state that they have obtained all necessary baby items including: crib, car seat, clothes, diapers, wipes and a breast pump. Childcare/Caregiver(s):? MOB states that she and LUIS ENRIQUE will work out their schedules so that on of them will always be with baby and they will not need daycare/ job developer for deaf adults once they have both returned to work. Transportation:?? Both parents have drivers license and reliable means of transportation, no transportation barriers at this time. Programs/Agencies Involved: MARSHA is connected to counseling through [facility] in [facility]. She states that she talks to her counselor very regularly. ??? Children Services/Legal Issues:??No prior involvement, no issues or concerns indicating need for referral at this time. ? Behavioral Health Issues: ??Mental Health History: MOB states that LUIS ENRIQUE does not have any mental health diagnoses. MOB states that she has not been diagnosed with anything, although she is in counseling and has been struggling since delivering baby. Sw asked MOB to self evaluate her symptoms and provided support. Sw educated MOB on signs and symptoms of baby blues and depression/ anxiety to be on the look out for. MOB stated that she is aware of what warning signs to look for. Sw asked MARSHA to complte an [place] Depression Scale, her score was a 0. ??? Substance Use History:??MOB denies substance use prior to and during . Family History:???MOB denies family history of mental health and substance use. ?? Drug Screens: ??No urine screen observed in chart review. Family/Social Stressors:? MOB does not express that she is stressed, however it is evident by MOB facial expression and flat affect that MARSHA is struggling due to her traumatic delivery and baby's need for NICU admission. Much education and support provided. Sw offered to answer any questions that MOB may have regarding what to expect during NICU admission. Support Systems: MARSHA reports that her family is supportive. Depression/Shaken Baby/Safe Sleeping: ?Sw provided education and literature on signs and symptoms to look for regarding baby blues and depression. Sw explained to MOB that it would be absolutely normal for her to experience one or the other, or both due to her delivery and stress due to baby is requiring hospitalization at NICU. MOB expressed understanding. Sw educated MOB on shaken baby prevention and ABCs of safe sleep. MOB expressed understanding. ASSESSMENT:?MOB currently hospitalized due to pre-eclampsia requiring emergent delivery at 34 weeks gestation. Baby born and transferred to [facility] due to respiratory distress and prematurity. MOB observed to have flat affect, but much improved compared to prior reports from bedside nursing staff. MOB struggling, understandably so due to traumatic and emergent delivery and baby's need to be hospitalized at [facility] NICU. MOB was receptive to sw involvement and support, and perked up when sw asked to see pictures of baby. MOB is hoping that her blood pressure will have improved enough that she will be able to be discharged today, and will be able to go to NICU to be with baby. PLAN:? MOB to be discharged when medically ready. ?No other services requested or indicated. Susi Walker, NEUROPSYCHOLOGY DIRECTOR, HUMANITIES DIVISION CHAIR
[2023-01-14] MEDS: Prenatal Vits Tablet 1 TABLET PO (12:03)
--- NOTE | 2023-01-14 12:12 | NURSING ---
Mepilex dressing on low transverse abdomen changed per request from Dr. Moore. New sterile mepilex dressing applied.
[2023-01-14 12:58] VITALS: BP 137/87; PULSE 70; RESP 16; TEMP 37.2; O2SAT 97
[2023-01-14 13:45] VITALS: RESP 16
== END 2023-01-14 13:40 | disposition home or self-care (01) | DRG 788 ==
LOC: WPOUT 23:03 → WP 23:03
PROVIDERS: Obstetrics & Gynecology; Registered Nurse; Admitting Provider Obstetrics & Gynecology; Visit Provider Obstetrics & Gynecology
DX: O11.4 Pre-existing hypertension with pre-eclampsia, complicating childbirth (principal); O60.14X0 Preterm labor third trimester with preterm delivery third trimester, not applicable or unspecified; Z37.0 Single live birth; Z3A.34 34 weeks gestation of pregnancy; Z87.440 Personal history of urinary (tract) infections
CPT/HCPCS: 59050; 74176; 76705; 80053; 81001; 82140; 82150; 82565; 82570; 82962; 83615; 83690; 84156; 84450; 84460; 84550; 85025; 85027; 85384; 85610; 85730; 86780; 86850; 86870; 86900; 86901; 87081; 87653; 99221; J7120; A4216; G0378; J2405

== ENCOUNTER → 2024-05-18 | Outpatient (CLI) | payer OTHER, SELFPAY ==
[2024-05-18 12:30] LABS: hCG Titer Quant., Serum 161 mIU/mL (1-3)
== END | disposition home or self-care (01) ==
LOC: BWCLAB 11:16
PROVIDERS: Referring Provider Advanced Practice Midwife; Visit Provider Advanced Practice Midwife
DX: Z34.90 Encounter for supervision of normal pregnancy, unspecified, unspecified trimester (principal); Z3A.00 Weeks of gestation of pregnancy not specified
CPT/HCPCS: 36415; 84702

== ENCOUNTER → 2024-05-21 | Outpatient (CLI) | payer OTHER, SELFPAY ==
[2024-05-21 17:33] LABS: hCG Titer Quant., Serum 604 mIU/mL (1-3)
== END | disposition home or self-care (01) ==
LOC: BWCLAB 16:07
PROVIDERS: Referring Provider Advanced Practice Midwife; Visit Provider Advanced Practice Midwife
DX: Z34.90 Encounter for supervision of normal pregnancy, unspecified, unspecified trimester (principal)
CPT/HCPCS: 36415; 84702

== ENCOUNTER → 2024-05-30 | Outpatient (CLI) | payer OTHER, SELFPAY | END | disposition home or self-care (01) | PROVIDERS: Referring Provider Obstetrics & Gynecology; Visit Provider Obstetrics & Gynecology | DX: R30.0 Dysuria (principal) | CPT/HCPCS: 87086 ==

== ENCOUNTER → 2024-06-15 | Outpatient (CLI) | payer OTHER, SELFPAY ==
[2024-06-15 17:17] LABS: Protein, Urine (Random) < 6.0 mg/dL (<11.9)
[2024-06-18 23:07] LABS: Chlamydia By Nucleic Acid AMP Negative (Negative); Gonococcus By Nucleic Acid AMP Negative (Negative)
== END | disposition home or self-care (01) ==
LOC: LABSPEC 16:24
PROVIDERS: Referring Provider Obstetrics & Gynecology; Visit Provider Obstetrics & Gynecology
DX: O09.90 Supervision of high risk pregnancy, unspecified, unspecified trimester (principal); Z87.59 Personal history of other complications of pregnancy, childbirth and the puerperium; Z3A.00 Weeks of gestation of pregnancy not specified
CPT/HCPCS: 82570; 84156; 87086; 87491; 87591

== ENCOUNTER → 2024-06-29 | Outpatient (CLI) | payer OTHER, SELFPAY ==
[2024-06-29 12:22] LABS: Absolute Lymphocyte Count 1.92 X10^3/uL (0.83-4.51); Basophil# 0.06 X10^3/uL; Basophil% 0.6 % (0-1); Eosinophil# 0.26 X10^3/uL; Eosinophils% 2.6 % (0-5); Hematocrit 40.7 % (37-47); Hemoglobin 13.6 g/dL (12.0-15.0); Lymphocyte # 1.92 X10^3/ul (0.83-4.51); Lymphocyte % 19.3 % (19-41); Mean Corp Hgb Conc 33.4 g/dL (32-36); Mean Corpuscular Hgb 31.1 pg (27.0-32.0); Mean Corpuscular Volume 93.1 fL (81-99); Mean Platelet Vol. 10.1 fl (6.2-12.0); Monocyte# 0.72 X10^3/uL; Monocyte% 7.2 % (0-10); NRBC Flagged by Analyzer 0 % (0-5); Neutrophil # 6.95 X10^3/uL (2.7-7.7); Neutrophil % 69.9 % (47-70); Platelet Count 316 K/mm3 (150-450); RBC Distribution Width CV 12.9 % (11.6-14.6); RBC Distribution Width SD 44.2 fl (35.1-43.9); Red Blood Count 4.37 M/mm3 (4.2-5.4)
[2024-06-29 13:37] LABS: ALB/GLOB Ratio 1.5 RATIO (0.9-2.4); AST(SGOT) 17 U/L (<=31); Alanine Aminotransfer ALT/SGPT 11 U/L (<=34); Albumin, Serum 4.1 g/dL (3.5-5.0); Alkaline Phosphatase 58 U/L (35-104); Anion Gap 13 (5-15); BUN 9 mg/dL (4-19); BUN/Creat Ratio 15.7 RATIO (10-20); Calcium,Total 9.1 mg/dL (7.6-11.0); Carbon Dioxide 19.7 mmol/L (21.0-32.0); Chloride 103 mmol/L (98-108); Creatinine, Serum 0.59 mg/dL (0.70-1.20); EST Glomerular Filtration Rate 126 (>60); Globulin 2.7 g/dL (2.2-4.2); Glucose 79 mg/dL (70-99); HIV Nonreactive (Nonreactive); Hepatitis B Surface Antigen Nonreactive (Nonreactive); Hepatitis C Antibody Nonreactive (Nonreactive); Potassium 3.9 mmol/L (3.3-5.1); Protein, Total 6.7 g/dL (5.9-8.4); Rubella IgG REAC (Nonreactive); Sodium Level 136 mmol/L (133-145); Syphilis Antibodies Nonreactive (Nonreactive); Total Bilirubin 0.28 mg/dL (0.00-1.30)
[2024-07-02 16:08] LABS: Anti-Cardiolipin Ab, IgG, Qn < 9 GPL U/mL (0-14); Anti-Cardiolipin Ab, IgM, Qn < 9 MPL U/mL (0-12); Beta-2-Glycoprotein I IgA <9 (0-25); Beta-2-Glycoprotein I IgG <9 (0-20); Beta-2-Glycoprotein I IgM <9 (0-32); Dilute Prothrombin Time (dPT) 34.4 sec (0.0-47.6); Dilute Russell Viper Venom 31.9 sec (0.0-47.0); Interpretation Comment: (.); PTT-LA 31.3 sec (0.0-43.5); Thrombin Time 14.9 sec (0.0-23.0); dPT Confirm Ratio 0.88 Ratio (0.00-1.34)
== END | disposition home or self-care (01) ==
LOC: BWCLAB 11:57
PROVIDERS: Referring Provider Obstetrics & Gynecology; Visit Provider Obstetrics & Gynecology
DX: O09.91 Supervision of high risk pregnancy, unspecified, first trimester (principal); O26.21 Pregnancy care for patient with recurrent pregnancy loss, first trimester; Z87.59 Personal history of other complications of pregnancy, childbirth and the puerperium; Z3A.00 Weeks of gestation of pregnancy not specified
CPT/HCPCS: 36415; 80053; 85025; 86146; 86147; 86703; 86762; 86780; 86803; 86850; 86900; 86901; 87340; 88175; G0145

== ENCOUNTER → 2024-09-07 | Outpatient (CLI) | payer SELFPAY, OTHER ==
--- NOTE | 2024-09-07 12:42 | US_ITS ---
PROCEDURE: OB ANATOMY SCAN 09/07/2024 REASON FOR EXAM: ANATOMY SCAN TECHNIQUE: High resolution obstetric ultrasound performed using a 2D transducer. Standard views obtained, including biometry, anatomy survey, and Doppler studies. COMPARISON: None FINDINGS LMP: January 25, 2025. Number: 1 Position: Breech Placental Position: Posterior and not low-lying. Placental Abnormalities: None DIMENSIONS: Biparietal Diameter: 4.51 cm: 19 weeks and 4 days: 34.3%/ Head Circumference: 17.64 cm: 20 weeks and 1 day: 48.3%/ Abdominal Circumference: 15.23 cm: 20 weeks and 3 days: 59.6%/ Femur Length: 3.1 cm: 19 weeks and 4 days: 28.9%/ ESTIMATED WEIGHT: 328 g plus/-49 g ESTIMATED WEIGHT PERCENTILE (24+ weeks): 47 ESTIMATED GESTATIONAL AGE: Baseline: 20 weeks and 0 days By Ultrasound: 19 weeks and 6 days ESTIMATED DATE OF DELIVERY: Baseline: January 25, 2025 By Ultrasound: January 26, 2025 BIOPHYSICAL ASSESSMENT: Amniotic Fluid Volume: 3.3 cm 5.4 cm Amniotic Fluid Index: Within normal range. (8-24 cm normal range) Cardiac Motion: 156 beats per minute (average) Trunk and Limb Motion: Present. MATERNAL ANATOMY: Adnexa: Both maternal ovaries are visualized and unremarkable. Cervical Length (if measured): 4.4 cm ANATOMY: Spine: Unremarkable Cranium: Unremarkable Cerebellum: Unremarkable Cisterna Magna: Unremarkable Cavum Septum Pellucidi: Unremarkable Lateral Ventricles: Unremarkable Choroid Plexus: Unremarkable Midline Falx: Unremarkable Nuchal Fold: Unremarkable Upper Lip: Unremarkable Heart: Unremarkable Ventricular Outflow Tracts: Unremarkable Stomach: Unremarkable Kidneys: Unremarkable Bladder: Unremarkable Umbilical Cord: Unremarkable Extremities: Unremarkable US/OB Anatomy Scan IMPRESSION: Single live intrauterine gestation with a mean gestational age of 19 weeks and 6 days. [facility]
== END | disposition home or self-care (01) ==
LOC: OPUS 12:37
PROVIDERS: Referring Provider Obstetrics & Gynecology; Visit Provider Obstetrics & Gynecology
DX: O09.90 Supervision of high risk pregnancy, unspecified, unspecified trimester (principal); Z3A.00 Weeks of gestation of pregnancy not specified
CPT/HCPCS: 76805

== ENCOUNTER → 2024-11-05 | Outpatient (CLI) | payer OTHER, SELFPAY ==
[2024-11-05 12:34] LABS: Hematocrit 33.0 % (37-47); Hemoglobin 10.8 g/dL (12.0-15.0); Immature Granulocytes Count 0.040 X10^3/uL (0.0-0.0); Mean Corp Hgb Conc 32.7 g/dL (32-36); Mean Corpuscular Volume 95.7 fL (81-99); Mean Platelet Vol. 9.8 fl (6.2-12.0); NRBC Flagged by Analyzer 0 % (0-5); Platelet Count 308 K/mm3 (150-450); RBC Distribution Width CV 12.8 % (11.6-14.6); RBC Distribution Width SD 44.7 fl (35.1-43.9); Red Blood Count 3.45 M/mm3 (4.2-5.4); White Blood Count 9.2 K/mm3 (4.4-11.0)
[2024-11-05 13:24] LABS: Glucose Challenge Gest 1H 50g 111 mg/dL (70-140); HIV Nonreactive (Nonreactive); Syphilis Antibodies Nonreactive (Nonreactive)
== END | disposition home or self-care (01) ==
PROVIDERS: Referring Provider Obstetrics & Gynecology; Visit Provider Obstetrics & Gynecology
DX: O09.90 Supervision of high risk pregnancy, unspecified, unspecified trimester (principal); Z3A.00 Weeks of gestation of pregnancy not specified; Z13.1 Encounter for screening for diabetes mellitus
CPT/HCPCS: 36415; 82950; 85025; 86703; 86780